=== PATIENT | female | born 1985 | race Caucasian/White ===

== ENCOUNTER → 2021-03-29 | Outpatient (CLI) | payer OTHER ==
[~2021-03-29] MED LIST: ESOM40CA PO; MULT-445 PO; [UNRECOGNIZED DRUG - CODE] PO
== END ==
LOC: LAB 10:04
PROVIDERS: ATTEND Surgery
DX: Z01.812 Encounter for preprocedural laboratory examination (principal); Z20.822 Contact with and (suspected) exposure to COVID-19
CPT/HCPCS: U0003; U0005

== ENCOUNTER 2021-03-30 08:08 | Inpatient (IN) | payer OTHER ==
[2021-03-30] VITALS (11 sets, daily range): BP systolic 113–141; BP diastolic 53–89
[~2021-03-30] VITALS: Ht 180.3 cm; Wt 114.8 kg
[~2021-03-30 08:08] MED LIST changes: -ESOM40CA PO; +IV RINGERS,LACTATED 1000ML 1,000 ML IV SCH; +MORPHINE SULFATE 2 MG/ML VIAL. IVP PRN; -MULT-445 PO; +PROCHLORPERAZINE 10 MG/2 ML VIAL. IVP PRN; -[UNRECOGNIZED DRUG - CODE] PO; +fentaNYL PF VIAL 100 MCG/2 ML VIAL IVP PRN
[2021-03-30] MEDS ORDERED: ESOM40CA PO (09:10)
[2021-03-30] MEDS ORDERED: [UNRECOGNIZED DRUG - CODE] PO (09:10)
[2021-03-30] MEDS ORDERED: MULT-445 PO (09:11)
--- NOTE | 2021-03-30 09:12 | PDOC ---
SURGICAL PROGRESS NOTE DATE: 03/30/21 TIME: 09:10 Subjective Pre-Op Note 36 yo F with congenital malrotation, pancreatitis TO OR for nima's procedure and cholecystectomy with cholangiogram R/R/B/A d/w pt and pt's mother. Risks, including, but not limited to: bleeding, infection, damage to surrounding structures, risk of anesthesia. They appear to understand, their questions are answered and they elect to proceed Office note H&P reviewed and negative except for HPI. Vital Signs Vital Signs Date Time Temp Pulse Resp B/P (MAP) Pulse Ox O2 Delivery O2 Flow Rate FiO2 03/30/21 08:41 98.7 80 18 97 98.7 Labs Laboratory Tests Test 03/30/21 07:41 Bedside Urine HCG, Qualitative Hcg negative (Negative) Laboratory Tests Test 03/30/21 07:41 Bedside Urine HCG, Qualitative Hcg negative (Negative) Justicifation of Admission Dx: Justifications for Admission: Justification of Admission Dx: Yes Comments: need for bowel rest and IVF WILNER HERNANDEZ MD Mar 30, 2021 09:12
[2021-03-30] MEDS ORDERED: LIDOCAINE 2% PF 5 ML VIAL. ONE (09:51)
[2021-03-30] MEDS ORDERED: PROPOFOL 10 MG/ML (20ML) VIAL. IV ONE ×2 (09:51→13:34)
[2021-03-30] MEDS ORDERED: SUCCINYLCHOLINE 200 MG/10 ML VIAL. ONE (09:51)
[2021-03-30] MEDS ORDERED: ROCURONIUM 50 MG/5 ML VIAL. ONE ×2 (09:52→11:13)
[2021-03-30] MEDS ORDERED: IOHEXOL 300 MG/ML 50 ML VIAL. ONE (10:05)
[2021-03-30] MEDS ORDERED: BUPIVACAINE-EPI 0.5%-1:200000 MPF 30 ML VIAL. ONE (10:05)
[2021-03-30] MEDS ORDERED: fentaNYL PF VIAL 100 MCG/2 ML VIAL ONE ×2 (10:30→13:40)
[2021-03-30] MEDS ORDERED: DEXAMETHASONE SOD PHOS 4 MG/ML VIAL ONE ×2 (10:34)
[2021-03-30] MEDS ORDERED: ONDANSETRON PF 4 MG/2 ML VIAL. ONE (10:34)
[2021-03-30] MEDS ORDERED: KETOROLAC 30 MG/ML VIAL. ONE (10:34)
[2021-03-30] MEDS ORDERED: HYDROmorphone 2 MG/ML VIAL ONE (10:43)
[2021-03-30] MEDS ORDERED: ePHEDrine PF IN SALINE 50 MG/10 ML SYRINGE. IV ONE (10:52)
[2021-03-30] MEDS ORDERED: NEOSTIGMINE METHYLSULFATE 5 MG/5 ML SYRINGE. ONE (12:09)
[2021-03-30] MEDS ORDERED: GLYCOPYRROLATE 1 MG/5 ML VIAL. ONE (12:09)
--- NOTE | 2021-03-30 12:46 | RAD ---
EXAM: Intraoperative cholangiogram. HISTORY: Cholecystomy. Pain. COMPARISON: None. FINDINGS: 2 fluoroscopic images were obtained during an intraoperative cholangiogram. The total fluor oscopy time is noncemented. There is contrast opacification of the downstream biliary tree and proxim al duodenum. No retained stone is seen. IMPRESSION: Intraoperative cholangiogram without evidence of a retained stone. Electronically signed by: Esperanza Pierre MD (03/30/2021 12:44 PM) [id number]
[2021-03-30] MEDS ORDERED: IV NORMAL SALINE 1000ML BAG 1,000 ML IV SCH (13:30)
[2021-03-30] MEDS ORDERED: NALOXONE 0.4 MG/ML VIAL. IV PRN (13:30)
[2021-03-30] MEDS ORDERED: 0.9 % SODIUM CHLORIDE 10 ML DISP.SYRIN. IV PRN (13:30)
--- NOTE | 2021-03-30 13:46 | PDOC4 ---
OPERATIVE NOTE Date: Date: Mar 30, 2021 Pre-Op Diagnosis: Congenital malrotation, pancreatitis Post-Op Diagnosis: same Procedure Performed: Springville's procedure (specifically: division of Spring[place]'s bands, division of fibrous bands, specifically to sigmoid colon, appendectomy, placement of small bowel in right abdomen with colon on left with cecum in LUQ), cholecystectomy with cholangiogram Surgeon: Zak Hernandez Anesthesia Type: GETA Blood Loss: 50 Specimans Obtained: appendix, gallbladder Findings: congenital malrotation (specifically: Spring[place]'s bands in RUQ, partially obstructing duodenum, no retroperitoneal attachments of bowel, fibrous bands throughout (especially to sigmoid and left colon)), somewhat redundant colon (favor secondary to chronic partial obstruction of left colon secondary to fibrous bands), viable viscera throughout, grossly normal appendix, normal stomach, no hernia or other masses, distended gallbladder, normal cholangiogram Complications: none Operative Note: After obtaining informed consent, patient was taken to OR, induced under GETA and prepped in the usual fashion. Midline incision made with cautery. Fascia divided in midline. Abdominal cavity was explored and noted as above. Omar's bands were divided sharply using cautery and duodenum was kocherized. Duodenum went right and inferiorly and did not cross midline or go retroperitoneally. Small bowel was followed and normal and uninjured. Appendix was identified off freely mobile cecum. Mesoappendix taken with ligasure. Base of appendix divided with UGO 75. Staple line oversewn with 3 0 vicryl. Appendix was sent to pathology. Extensive fibrous adhesions were noted in LLQ, appearing to partially obstructed the left colon and sigmoid. These were sharply divided using cautery, fully mobilizing colon throughout. Ultimately, small bowel and colon fully mobilized and no areas of obstruction noted. Bowel returned to abdominal cavity without obvious volvulus and with small bowel to right and colon to left with cecum in LUQ. Gallbladder was noted to be distended. Given this and history of pancreatitis (elevation of pancreatic enzymes and pancreatic lymph nodes enlargement) cholecystectomy indicated. Gallbladder taken off fossa using cautery. Cystic artery ligated with ligasure. Cystic duct only remaining structure. Cholangiogram obtained which was normal. Cystic duct controlled with 0 vicryl and clip. Gallbladder sent to pathology. Liver normal in appearance. Copious irrigation. No evidence of bleeding or other pathology noted. Peritoneum repaired with 0 vicryl. Anterior fascia repaired with 0 looped PDS. Skin repaired with 3 0 vicryl and 4 0 monocryl. Dressing placed. Patient tolerated procedure well and sent to PACU in stable condition. All counts correct. Wound class is 2. WILNER HERNANDEZ MD Mar 30, 2021 13:46
[2021-03-30] MEDS: fentaNYL PF VIAL 100 MCG/2 ML VIAL IVP PRN ×2 (14:01→14:08)
[2021-03-30] MEDS: HYDROmorphone 2 MG/ML VIAL IVP PRN ×2 (14:24→14:42)
--- NOTE | 2021-03-30 16:25 | RAD ---
EXAM: Abdomen, single view. HISTORY: Postoperative foreign body assessment. COMPARISON: None. FINDINGS: A frontal view of the abdomen is obtained. The upper abdomen and right abdomen or partially excluded from the [id number]. There are distended air-filled loops of bowel throughout the abdome n. There is no evidence of bowel obstruction. No radiodense foreign body is seen. IMPRESSION: Distended air-filled bowel. No evidence of a foreign body. Electronically signed by: Esperanza Pierre MD (03/30/2021 4:23 PM) [id number]
[2021-03-30] MEDS: IV RINGERS,LACTATED 1000ML 1,000 ML IV SCH ×2 (17:10→23:30)
[2021-03-30] MEDS: MORPHINE SULFATE 2 MG/ML VIAL. IV PRN ×2 (18:07→22:10)
[2021-03-30] MEDS: SENNOSIDES/DOCUSATE 8.6/50MG TABLET. PO SCH (22:06)
[2021-03-30] MEDS: HYDROcodone/APAP 5/325MG 1 TAB TABLET PO PRN (23:14)
[2021-03-31] MEDS: IV NORMAL SALINE 1000ML BAG 1,000 ML IV SCH (00:45)
[2021-03-31] MEDS ORDERED: NALOXONE 0.4 MG/ML VIAL. IV PRN (00:45)
[2021-03-31 07:00] VITALS: BP 109/58
[2021-03-31 07:41] LABS: BASO % 0 % (0-3); EOS % 0 % (0-3); HEMATOCRIT 36.1 % (36.0-47.0); LYMPH # 1.7 x10^3/uL (1.0-4.8); LYMPH % 12 % (24-48); MEAN CORPUSCULAR HEMOGLOBIN 30 pg (25-35); MEAN CORPUSCULAR HGB CONC 33 g/dL (31-37); MEAN CORPUSCULAR VOLUME 90 fL (79-100); MONO # 1.3 x10^3/uL (0.0-1.1); MONO % 9 % (0-9); NEUT # 10.9 x10^3/uL (1.8-7.7); NEUT % 78 % (31-73); PLATELET COUNT 181 x10^3/uL (140-400); RED BLOOD COUNT 4.01 x10^6/uL (3.50-5.40); RED CELL DISTRIBUTION WIDTH 11.9 % (11.5-14.5); WHITE BLOOD COUNT 13.9 x10^3/uL (4.0-11.0)
[2021-03-31 08:06] LABS: CALCIUM 8.5 mg/dL (8.5-10.1); CREATININE 0.9 mg/dL (0.6-1.0); GFR 71.7
[2021-03-31] MEDS: ENOXAPARIN 40 MG/0.4 ML SYRINGE. SQ SCH (08:27)
[2021-03-31] MEDS: SENNOSIDES/DOCUSATE 8.6/50MG TABLET. PO SCH ×2 (08:27→21:09)
--- NOTE | 2021-03-31 09:12 | PDOC ---
SURGICAL PROGRESS NOTE DATE: 03/31/21 TIME: 09:11 Subjective pain issues overnight, now improved with LEGAL TRANSCRIPTIONIST mild nausea, some hiccups Vital Signs Vital Signs Date Time Temp Pulse Resp B/P (MAP) Pulse Ox O2 Delivery O2 Flow Rate FiO2 03/31/21 07:00 98.6 94 17 109/58 (75) 96 Room Air 98.6 03/30/21 14:24 8.0 I&O Intake and Output 03/31/21 07:00 Intake Total 2640 ml Output Total 1800 ml Balance 840 ml Intake Oral 640 ml IV Total 2000 ml Output Urine Total 1750 ml Estimated Blood Loss 50 ml General: Alert, Oriented X3, Cooperative Abdomen: Soft, Other (dressing in place with some shadowing ) Labs Laboratory Tests Test 03/30/21 07:41 03/31/21 05:45 Bedside Urine HCG, Qualitative Hcg negative (Negative) White Blood Count 13.9 x10^3/uL (4.0-11.0) Red Blood Count 4.01 x10^6/uL (3.50-5.40) Hemoglobin 12.0 g/dL (12.0-15.5) Hematocrit 36.1 % (36.0-47.0) Mean Corpuscular Volume 90 fL (79-100) Mean Corpuscular Hemoglobin 30 pg (25-35) Mean Corpuscular Hemoglobin Concent 33 g/dL (31-37) Red Cell Distribution Width 11.9 % (11.5-14.5) Platelet Count 181 x10^3/uL (140-400) Neutrophils (%) (Auto) 78 % (31-73) Lymphocytes (%) (Auto) 12 % (24-48) Monocytes (%) (Auto) 9 % (0-9) Eosinophils (%) (Auto) 0 % (0-3) Basophils (%) (Auto) 0 % (0-3) Neutrophils # (Auto) 10.9 x10^3/uL (1.8-7.7) Lymphocytes # (Auto) 1.7 x10^3/uL (1.0-4.8) Monocytes # (Auto) 1.3 x10^3/uL (0.0-1.1) Eosinophils # (Auto) 0.0 x10^3/uL (0.0-0.7) Basophils # (Auto) 0.0 x10^3/uL (0.0-0.2) Sodium Level 141 mmol/L (136-145) Potassium Level 4.0 mmol/L (3.5-5.1) Chloride Level 107 mmol/L (98-107) Carbon Dioxide Level 25 mmol/L (21-32) Anion Gap 9 (6-14) Blood Urea Nitrogen 9 mg/dL (7-20) Creatinine 0.9 mg/dL (0.6-1.0) Estimated GFR (Cockcroft-Gault) 71.7 Glucose Level 113 mg/dL (70-99) Calcium Level 8.5 mg/dL (8.5-10.1) Laboratory Tests Test 03/31/21 05:45 White Blood Count 13.9 x10^3/uL (4.0-11.0) Red Blood Count 4.01 x10^6/uL (3.50-5.40) Hemoglobin 12.0 g/dL (12.0-15.5) Hematocrit 36.1 % (36.0-47.0) Mean Corpuscular Volume 90 fL (79-100) Mean Corpuscular Hemoglobin 30 pg (25-35) Mean Corpuscular Hemoglobin Concent 33 g/dL (31-37) Red Cell Distribution Width 11.9 % (11.5-14.5) Platelet Count 181 x10^3/uL (140-400) Neutrophils (%) (Auto) 78 % (31-73) Lymphocytes (%) (Auto) 12 % (24-48) Monocytes (%) (Auto) 9 % (0-9) Eosinophils (%) (Auto) 0 % (0-3) Basophils (%) (Auto) 0 % (0-3) Neutrophils # (Auto) 10.9 x10^3/uL (1.8-7.7) Lymphocytes # (Auto) 1.7 x10^3/uL (1.0-4.8) Monocytes # (Auto) 1.3 x10^3/uL (0.0-1.1) Eosinophils # (Auto) 0.0 x10^3/uL (0.0-0.7) Basophils # (Auto) 0.0 x10^3/uL (0.0-0.2) Sodium Level 141 mmol/L (136-145) Potassium Level 4.0 mmol/L (3.5-5.1) Chloride Level 107 mmol/L (98-107) Carbon Dioxide Level 25 mmol/L (21-32) Anion Gap 9 (6-14) Blood Urea Nitrogen 9 mg/dL (7-20) Creatinine 0.9 mg/dL (0.6-1.0) Estimated GFR (Cockcroft-Gault) 71.7 Glucose Level 113 mg/dL (70-99) Calcium Level 8.5 mg/dL (8.5-10.1) Assessment/Plan supportive care await bowel function insurance sales professional today dc blanco today increase activity Justicifation of Admission Dx: Justifications for Admission: Justification of Admission Dx: Yes SISI MAYER BUSINESS DATABASE ANALYST Mar 31, 2021 09:12
[2021-03-31] MEDS: IV RINGERS,LACTATED 1000ML 1,000 ML IV SCH ×2 (09:30→19:30)
--- NOTE | 2021-03-31 09:44 | NUR ---
SW following. Discussed with RN, pt from home, room air, clear liquid diet, DIVISION CHAIR, Palm. Pt had surgery 03/30/21. RN advised no SW needs at this time. SW will continue to follow.
[2021-03-31 11:00] VITALS: BP 102/60
[2021-03-31 15:00] VITALS: BP 120/68
[2021-03-31] MEDS: ONDANSETRON PF 4 MG/2 ML VIAL. IVP PRN (16:18)
[2021-03-31 19:00] VITALS: BP 118/81
[2021-03-31] MEDS: PROCHLORPERAZINE 10 MG/2 ML VIAL. IV PRN (21:26)
[2021-03-31 23:00] VITALS: BP 128/72
[2021-03-31] MEDS: HYDROmorphone 12mg/30ml PCA 30 ML IV PRN (23:36)
[2021-04-01] MEDS: ONDANSETRON PF 4 MG/2 ML VIAL. IVP PRN ×3 (00:25→19:17)
[2021-04-01] MEDS: IV NORMAL SALINE 1000ML BAG 1,000 ML IV SCH ×2 (00:45→19:18)
[2021-04-01 03:00] VITALS: BP 131/91
[2021-04-01] MEDS: PROCHLORPERAZINE 10 MG/2 ML VIAL. IV PRN ×2 (03:30→14:58)
[2021-04-01] MEDS: IV RINGERS,LACTATED 1000ML 1,000 ML IV SCH (05:30)
[2021-04-01] MEDS: PANTOPRAZOLE 40 MG TABLET.DR. PO SCH (05:49)
[2021-04-01 07:00] VITALS: BP 148/92
--- NOTE | 2021-04-01 08:57 | PDOC ---
SURGICAL PROGRESS NOTE DATE: 04/01/21 TIME: 08:56 Subjective vomiting, distention feels unwell no flatus Vital Signs Vital Signs Date Time Temp Pulse Resp B/P (MAP) Pulse Ox O2 Delivery O2 Flow Rate FiO2 04/01/21 08:00 Room Air 04/01/21 07:00 98.6 110 16 148/92 (110) 94 98.6 I&O Intake and Output 04/01/21 07:00 Intake Total 940 ml Output Total 2527 ml Balance -1587 ml Intake Oral 940 ml Output Urine Total 2525 ml Stool Total 0 ml Emesis 2 ml # Voids 3 General: Alert, Cooperative Abdomen: Soft, Other (distended) Labs Laboratory Tests Test 03/31/21 05:45 04/01/21 00:20 White Blood Count 13.9 x10^3/uL (4.0-11.0) Red Blood Count 4.01 x10^6/uL (3.50-5.40) Hemoglobin 12.0 g/dL (12.0-15.5) Hematocrit 36.1 % (36.0-47.0) Mean Corpuscular Volume 90 fL (79-100) Mean Corpuscular Hemoglobin 30 pg (25-35) Mean Corpuscular Hemoglobin Concent 33 g/dL (31-37) Red Cell Distribution Width 11.9 % (11.5-14.5) Platelet Count 181 x10^3/uL (140-400) Neutrophils (%) (Auto) 78 % (31-73) Lymphocytes (%) (Auto) 12 % (24-48) Monocytes (%) (Auto) 9 % (0-9) Eosinophils (%) (Auto) 0 % (0-3) Basophils (%) (Auto) 0 % (0-3) Neutrophils # (Auto) 10.9 x10^3/uL (1.8-7.7) Lymphocytes # (Auto) 1.7 x10^3/uL (1.0-4.8) Monocytes # (Auto) 1.3 x10^3/uL (0.0-1.1) Eosinophils # (Auto) 0.0 x10^3/uL (0.0-0.7) Basophils # (Auto) 0.0 x10^3/uL (0.0-0.2) Sodium Level 141 mmol/L (136-145) Potassium Level 4.0 mmol/L (3.5-5.1) Chloride Level 107 mmol/L (98-107) Carbon Dioxide Level 25 mmol/L (21-32) Anion Gap 9 (6-14) Blood Urea Nitrogen 9 mg/dL (7-20) Creatinine 0.9 mg/dL (0.6-1.0) Estimated GFR (Cockcroft-Gault) 71.7 Glucose Level 113 mg/dL (70-99) Calcium Level 8.5 mg/dL (8.5-10.1) Lactic Acid Level 0.7 mmol/L (0.4-2.0) Laboratory Tests Test 04/01/21 00:20 Lactic Acid Level 0.7 mmol/L (0.4-2.0) Problem List place NG, xr, lab Justicifation of Admission Dx: Justifications for Admission: Justification of Admission Dx: Yes SISI MAYER APRN Apr 01, 2021 08:57
[2021-04-01] MEDS: SENNOSIDES/DOCUSATE 8.6/50MG TABLET. PO SCH ×2 (09:00→21:00)
--- NOTE | 2021-04-01 10:57 | RAD ---
Study: XR ABDOMEN COMP ACUTE Indication: Nasogastric tube placement. Postoperative vomiting. Comparison: 03/30/2021 Findings: Enteric tube tip and sidehole are within the stomach. Bibasilar atelectasis. Gaseous distention of bowel. Distended gastric bubble with gas and fluid. Impression: Enteric tube tip and sidehole are within the stomach. Gaseous distention of bowel and gas/fluid diste ntion of the gastric bubble which could represent a postoperative ileus. Electronically signed by: TAIWO KOO MD (04/01/2021 10:55 AM) QUENTIN
[2021-04-01 11:00] VITALS: BP 137/84
[2021-04-01] MEDS: ENOXAPARIN 40 MG/0.4 ML SYRINGE. SQ SCH (11:02)
[2021-04-01 12:45] LABS: BASO % 0 % (0-3); EOS % 0 % (0-3); HEMATOCRIT 41.9 % (36.0-47.0); HEMOGLOBIN 14.2 g/dL (12.0-15.5); LYMPH # 0.9 x10^3/uL (1.0-4.8); LYMPH % 6 % (24-48); MEAN CORPUSCULAR HEMOGLOBIN 30 pg (25-35); MEAN CORPUSCULAR HGB CONC 34 g/dL (31-37); MEAN CORPUSCULAR VOLUME 89 fL (79-100); MONO # 0.9 x10^3/uL (0.0-1.1); MONO % 6 % (0-9); NEUT % 88 % (31-73); PLATELET COUNT 232 x10^3/uL (140-400); RED BLOOD COUNT 4.71 x10^6/uL (3.50-5.40); RED CELL DISTRIBUTION WIDTH 11.9 % (11.5-14.5); WHITE BLOOD COUNT 15.9 x10^3/uL (4.0-11.0)
[2021-04-01 12:59] LABS: ALBUMIN/GLOBULIN RATIO 0.7 (1.0-1.7); CREATININE 0.9 mg/dL (0.6-1.0); GFR 71.7; POTASSIUM 4.1 mmol/L (3.5-5.1); TOTAL BILIRUBIN 1.2 mg/dL (0.2-1.0); TOTAL PROTEIN 7.1 g/dL (6.4-8.2)
--- NOTE | 2021-04-01 13:19 | NUR ---
SPECIALTY THERAPIST increased to 0.2mg every 10min.
[2021-04-01] MEDS ORDERED: IV RINGERS,LACTATED 500ML 500 ML IV ONE (13:45)
[2021-04-01 14:09] LABS: % BANDS 1 % (0-9); % BASOS 1 % (0-3); % SEGS 87 % (35-66)
[2021-04-01 14:10] LABS: % LYMPHS 8 % (24-48); % MONOS 3 % (0-10)
[2021-04-01 14:18] LABS: PLT ESTIMATE ADEQUATE (ADEQUATE)
[2021-04-01 15:00] VITALS: BP 133/80
[2021-04-01] MEDS: HYDROmorphone 12mg/30ml PCA 30 ML IV PRN (15:01)
[2021-04-01 19:47] VITALS: BP 153/80
[2021-04-01 23:05] VITALS: BP 139/91
[2021-04-02 03:13] VITALS: BP 138/89
[2021-04-02] MEDS: IV NORMAL SALINE 1000ML BAG 1,000 ML IV SCH ×3 (06:08→20:14)
[2021-04-02 07:00] VITALS: BP 138/86
[2021-04-02] MEDS: PANTOPRAZOLE 40 MG TABLET.DR. PO SCH (07:30)
[2021-04-02 07:49] LABS: BASO % 0 % (0-3); EOS % 0 % (0-3); HEMATOCRIT 37.6 % (36.0-47.0); HEMOGLOBIN 12.7 g/dL (12.0-15.5); LYMPH # 1.4 x10^3/uL (1.0-4.8); LYMPH % 12 % (24-48); MEAN CORPUSCULAR HEMOGLOBIN 30 pg (25-35); MEAN CORPUSCULAR HGB CONC 34 g/dL (31-37); MEAN CORPUSCULAR VOLUME 90 fL (79-100); MONO # 1.3 x10^3/uL (0.0-1.1); MONO % 12 % (0-9); NEUT # 8.3 x10^3/uL (1.8-7.7); NEUT % 76 % (31-73); PLATELET COUNT 204 x10^3/uL (140-400); RED CELL DISTRIBUTION WIDTH 11.7 % (11.5-14.5)
[2021-04-02] MEDS ORDERED: IV RINGERS,LACTATED 500ML 500 ML IV ONE (08:00)
[2021-04-02] MEDS: SENNOSIDES/DOCUSATE 8.6/50MG TABLET. PO SCH ×3 (08:10→20:17)
[2021-04-02 08:16] LABS: ALBUMIN 2.6 g/dL (3.4-5.0); ALBUMIN/GLOBULIN RATIO 0.7 (1.0-1.7); CALCIUM 8.3 mg/dL (8.5-10.1); GFR 63.5; POTASSIUM 4.3 mmol/L (3.5-5.1); TOTAL BILIRUBIN 1.2 mg/dL (0.2-1.0); TOTAL PROTEIN 6.3 g/dL (6.4-8.2)
--- NOTE | 2021-04-02 08:26 | PATHOLOGY ---
[facility] Accession Number: [id number] . 01 Material submitted: . PART A: appendix - APPENDIX PART B: gallbladder - GALLBLADDER . 01 Clinical history: . MALFORMATION OF INTESTINAL FORMATIONS PAIGE'S PROCEDURE . 02 Diagnosis: A. Appendix, appendectomy: - Fibrous obliteration of appendiceal lumen. . B. Gallbladder, cholecystectomy: - Cholesterolosis. - Congestion and focal slight chronic inflammation. - Focal lipogranulomata of gallbladder neck lymph node. . (JAYMIEM:nicanor; 04/01/2021) [facility] 04/01/2021 1739 Local . 02 Comment: There are no calculi identified within the gallbladder lumen or specimen container. (JPM:nicanor; 04/01/2021) . 02 Electronically signed: . Samm Crain MD, Pathologist NPI- [id number] . 01 Gross description: . A. Fixative: Formalin Labeled: Appendix Appendix length: 5.7 cm Appendix diameter: 0.7 cm Mesoappendix: 3.5 cm Proximal margin: Inked Luminal diameter: 0.1 cm Serosa: Arkoma-dobbs without gross evidence of exudate Cut surface: Unremarkable Perforation: None Fecaliths none Lesions/abnormalities: None A1 Proximal margin (inked black), and the entire tip A2 cross sections . B. Fixative: formalin Labeled: gallbladder Specimen received: partially collapsed Dimensions: 8 x 3.5 x 2 cm Serosa: smooth jonas green Lymph node: 0.6 cm entirely submitted A1 Mucosa: velvety-with a yellow reticular pattern Average wall thickness: 0.2 cm Calculi: None Abnormalities: None . Delivery Helper body, fundus, and the cystic duct margin in cassette B1. ([facility]; 03/31/2021) [facility] 04/01/2021 1736 Local . 02 Pathologist provided ICD-10: K38.8, K82.4 . 02 CPT . 687264, 617363 Specimen Comment: A courtesy copy of this report has been sent to [phone] Specimen Comment: Report sent to Specimen Comment: A duplicate report has been generated due to demographic updates. Performed at: 01 [facility] [address], [place] [id number] MD Trace Metz MD Phone: [phone] Performed at: 02 [facility] [address] [place], [place] [id number] MD Samm Crain MD Phone: [phone]
[2021-04-02] MEDS: ENOXAPARIN 40 MG/0.4 ML SYRINGE. SQ SCH (08:49)
--- NOTE | 2021-04-02 09:55 | NUR ---
SW following. Discussed with RN, pt from home, room air, NPO, MUTUAL FUND ACCOUNTANT, NG. Surgery on 03/30/21. RN advised no SW needs. Pt will likely be here through the weekend. SW will continue to follow.
[2021-04-02 10:48] VITALS: BP 133/83
--- NOTE | 2021-04-02 11:04 | PDOC ---
SURGICAL PROGRESS NOTE DATE: 04/02/21 TIME: 11:02 Subjective Pt feels better, no flatus or stools, but feels rumblings Vital Signs Vital Signs Date Time Temp Pulse Resp B/P (MAP) Pulse Ox O2 Delivery O2 Flow Rate FiO2 04/02/21 10:48 97.6 102 17 133/83 (100) 93 Room Air 97.6 I&O Intake and Output 04/02/21 07:00 Intake Total 1000 ml Output Total 3100 ml Balance -2100 ml IV Total 1000 ml Gastric Drainage Total 3100 ml # Voids 2 General: Alert, Oriented X3, Cooperative, No acute distress Abdomen: Soft, Other (mild TTP) Labs Laboratory Tests Test 04/01/21 00:20 04/01/21 11:55 04/02/21 07:25 Lactic Acid Level 0.7 mmol/L (0.4-2.0) White Blood Count 15.9 x10^3/uL (4.0-11.0) 11.0 x10^3/uL (4.0-11.0) Red Blood Count 4.71 x10^6/uL (3.50-5.40) 4.20 x10^6/uL (3.50-5.40) Hemoglobin 14.2 g/dL (12.0-15.5) 12.7 g/dL (12.0-15.5) Hematocrit 41.9 % (36.0-47.0) 37.6 % (36.0-47.0) Mean Corpuscular Volume 89 fL (79-100) 90 fL (79-100) Mean Corpuscular Hemoglobin 30 pg (25-35) 30 pg (25-35) Mean Corpuscular Hemoglobin Concent 34 g/dL (31-37) 34 g/dL (31-37) Red Cell Distribution Width 11.9 % (11.5-14.5) 11.7 % (11.5-14.5) Platelet Count 232 x10^3/uL (140-400) 204 x10^3/uL (140-400) Neutrophils (%) (Auto) 88 % (31-73) 76 % (31-73) Lymphocytes (%) (Auto) 6 % (24-48) 12 % (24-48) Monocytes (%) (Auto) 6 % (0-9) 12 % (0-9) Eosinophils (%) (Auto) 0 % (0-3) 0 % (0-3) Basophils (%) (Auto) 0 % (0-3) 0 % (0-3) Neutrophils # (Auto) 14.0 x10^3/uL (1.8-7.7) 8.3 x10^3/uL (1.8-7.7) Lymphocytes # (Auto) 0.9 x10^3/uL (1.0-4.8) 1.4 x10^3/uL (1.0-4.8) Monocytes # (Auto) 0.9 x10^3/uL (0.0-1.1) 1.3 x10^3/uL (0.0-1.1) Eosinophils # (Auto) 0.0 x10^3/uL (0.0-0.7) 0.0 x10^3/uL (0.0-0.7) Basophils # (Auto) 0.0 x10^3/uL (0.0-0.2) 0.0 x10^3/uL (0.0-0.2) Segmented Neutrophils % 87 % (35-66) Band Neutrophils % 1 % (0-9) Lymphocytes % 8 % (24-48) Monocytes % 3 % (0-10) Basophils % 1 % (0-3) Platelet Estimate Adequate (ADEQUATE) Sodium Level 137 mmol/L (136-145) 140 mmol/L (136-145) Potassium Level 4.1 mmol/L (3.5-5.1) 4.3 mmol/L (3.5-5.1) Chloride Level 101 mmol/L (98-107) 105 mmol/L (98-107) Carbon Dioxide Level 23 mmol/L (21-32) 27 mmol/L (21-32) Anion Gap 13 (6-14) 8 (6-14) Blood Urea Nitrogen 10 mg/dL (7-20) 11 mg/dL (7-20) Creatinine 0.9 mg/dL (0.6-1.0) 1.0 mg/dL (0.6-1.0) Estimated GFR (Cockcroft-Gault) 71.7 63.5 BUN/Creatinine Ratio 11 (6-20) 11 (6-20) Glucose Level 137 mg/dL (70-99) 125 mg/dL (70-99) Calcium Level 9.0 mg/dL (8.5-10.1) 8.3 mg/dL (8.5-10.1) Total Bilirubin 1.2 mg/dL (0.2-1.0) 1.2 mg/dL (0.2-1.0) Aspartate Amino Transf (AST/SGOT) 26 U/L (15-37) 24 U/L (15-37) Alanine Aminotransferase (ALT/SGPT) 19 U/L (14-59) 15 U/L (14-59) Alkaline Phosphatase 61 U/L (46-116) 47 U/L (46-116) Total Protein 7.1 g/dL (6.4-8.2) 6.3 g/dL (6.4-8.2) Albumin 3.0 g/dL (3.4-5.0) 2.6 g/dL (3.4-5.0) Albumin/Globulin Ratio 0.7 (1.0-1.7) 0.7 (1.0-1.7) Laboratory Tests Test 04/01/21 11:55 04/02/21 07:25 White Blood Count 15.9 x10^3/uL (4.0-11.0) 11.0 x10^3/uL (4.0-11.0) Red Blood Count 4.71 x10^6/uL (3.50-5.40) 4.20 x10^6/uL (3.50-5.40) Hemoglobin 14.2 g/dL (12.0-15.5) 12.7 g/dL (12.0-15.5) Hematocrit 41.9 % (36.0-47.0) 37.6 % (36.0-47.0) Mean Corpuscular Volume 89 fL (79-100) 90 fL (79-100) Mean Corpuscular Hemoglobin 30 pg (25-35) 30 pg (25-35) Mean Corpuscular Hemoglobin Concent 34 g/dL (31-37) 34 g/dL (31-37) Red Cell Distribution Width 11.9 % (11.5-14.5) 11.7 % (11.5-14.5) Platelet Count 232 x10^3/uL (140-400) 204 x10^3/uL (140-400) Neutrophils (%) (Auto) 88 % (31-73) 76 % (31-73) Lymphocytes (%) (Auto) 6 % (24-48) 12 % (24-48) Monocytes (%) (Auto) 6 % (0-9) 12 % (0-9) Eosinophils (%) (Auto) 0 % (0-3) 0 % (0-3) Basophils (%) (Auto) 0 % (0-3) 0 % (0-3) Neutrophils # (Auto) 14.0 x10^3/uL (1.8-7.7) 8.3 x10^3/uL (1.8-7.7) Lymphocytes # (Auto) 0.9 x10^3/uL (1.0-4.8) 1.4 x10^3/uL (1.0-4.8) Monocytes # (Auto) 0.9 x10^3/uL (0.0-1.1) 1.3 x10^3/uL (0.0-1.1) Eosinophils # (Auto) 0.0 x10^3/uL (0.0-0.7) 0.0 x10^3/uL (0.0-0.7) Basophils # (Auto) 0.0 x10^3/uL (0.0-0.2) 0.0 x10^3/uL (0.0-0.2) Segmented Neutrophils % 87 % (35-66) Band Neutrophils % 1 % (0-9) Lymphocytes % 8 % (24-48) Monocytes % 3 % (0-10) Basophils % 1 % (0-3) Platelet Estimate Adequate (ADEQUATE) Sodium Level 137 mmol/L (136-145) 140 mmol/L (136-145) Potassium Level 4.1 mmol/L (3.5-5.1) 4.3 mmol/L (3.5-5.1) Chloride Level 101 mmol/L (98-107) 105 mmol/L (98-107) Carbon Dioxide Level 23 mmol/L (21-32) 27 mmol/L (21-32) Anion Gap 13 (6-14) 8 (6-14) Blood Urea Nitrogen 10 mg/dL (7-20) 11 mg/dL (7-20) Creatinine 0.9 mg/dL (0.6-1.0) 1.0 mg/dL (0.6-1.0) Estimated GFR (Cockcroft-Gault) 71.7 63.5 BUN/Creatinine Ratio 11 (6-20) 11 (6-20) Glucose Level 137 mg/dL (70-99) 125 mg/dL (70-99) Calcium Level 9.0 mg/dL (8.5-10.1) 8.3 mg/dL (8.5-10.1) Total Bilirubin 1.2 mg/dL (0.2-1.0) 1.2 mg/dL (0.2-1.0) Aspartate Amino Transf (AST/SGOT) 26 U/L (15-37) 24 U/L (15-37) Alanine Aminotransferase (ALT/SGPT) 19 U/L (14-59) 15 U/L (14-59) Alkaline Phosphatase 61 U/L (46-116) 47 U/L (46-116) Total Protein 7.1 g/dL (6.4-8.2) 6.3 g/dL (6.4-8.2) Albumin 3.0 g/dL (3.4-5.0) 2.6 g/dL (3.4-5.0) Albumin/Globulin Ratio 0.7 (1.0-1.7) 0.7 (1.0-1.7) Assessment/Plan s/p nima's procedure cont NGT and bowel rest suspect pt with long standing malnutrition and as such will start TPN Justicifation of Admission Dx: Justifications for Admission: Justification of Admission Dx: Yes WILNER HERNANDEZ MD Apr 02, 2021 11:04
[2021-04-02] MEDS: HYDROmorphone 12mg/30ml PCA 30 ML IV PRN (12:54)
[2021-04-02] MEDS ORDERED: LIDOCAINE WITH 8.4% SOD BICARB 3 ML DISP.SYRIN. ONE (14:45)
[2021-04-02 15:00] VITALS: BP 142/83
--- NOTE | 2021-04-02 15:26 | RAD ---
Date: Exam: Fluoroscopic and ultrasound guided peripheral central venous catheter placement. Indication: Consent: The procedure was explained in its entirety to the patient or the patients designated repres entative by a member of the treatment team, including a discussion of the risks, benefits and commonl y accepted alternatives to the procedure, as well as the expected consequences of no therapy whatsoev er. Discussion of the risks included, but was not limited to, those that are most frequent and thos e that are rare but possibly severe or life-threatening, as well as the possibility of unforeseen com plications. Discussion: A timeout procedure was performed. The patient was prepped and draped using maximum sterile techniq ue, including the use of: Current guideline approved cutaneous antisepsis, a large sterile sheet to e stablish a sterile field. Additionally the chemical reclamation equipment operator wore a hat, mask, sterile gloves, a sterile gown during the procedure as well as practiced acceptable hand hygiene prior to placing the line. 1% lidoc slime was administered for local anesthesia. Ultrasound evaluation demonstrates a patent basilic vein. Reference images were saved in the medical record. The selected vein was accessed using micropuncture technique. A guidewire was advanced centr ally. The PICC line was cut to length, and advanced through a peel-away sheath such that it's tip re sides at the cavoatrial junction. The peel-away sheath a sheath was removed. The catheter was secured in place. The catheter was found to flush and aspirate normally.. Sterile dressings were applied. No immediate complications were identified. Fluoroscopy time: 0.7 minutes Dose area product: 2 Gycm2 Impression: Successful placement of a right upper extremity PICC line Electronically signed by: Misha Head MD (04/02/2021 3:24 PM) [id number]
[2021-04-02 19:00] VITALS: BP 138/84
[2021-04-02 23:00] VITALS: BP 141/83
[2021-04-03 03:00] VITALS: BP 124/79
[2021-04-03] MEDS ORDERED: PHENOL ORAL SPRAY 177ML BOTTLE. PO PRN (03:15)
[2021-04-03] MEDS: IV NORMAL SALINE 1000ML BAG 1,000 ML IV SCH ×2 (05:15→15:14)
[2021-04-03 07:00] VITALS: BP 133/76
[2021-04-03] MEDS: PANTOPRAZOLE 40 MG TABLET.DR. PO SCH (07:30)
--- NOTE | 2021-04-03 08:38 | PDOC ---
SURGICAL PROGRESS NOTE DATE: 04/03/21 TIME: 08:36 Subjective Patient feeling better this morning. States that she feels crampy abdominal pain as if things are starting to move. No flatus or bowel movement Vital Signs Vital Signs Date Time Temp Pulse Resp B/P (MAP) Pulse Ox O2 Delivery O2 Flow Rate FiO2 04/03/21 07:00 98.2 95 18 133/76 (95) 96 Room Air 98.2 I&O Intake and Output 04/03/21 07:00 Intake Total 1120 ml Output Total 2401 ml Balance -1281 ml Intake Oral 120 ml IV Total 1000 ml Output Urine Total 1 ml Gastric Drainage Total 2400 ml # Voids 4 PATIENT HAS A ARNDT: No General: Alert, Oriented X3, Cooperative, mild distress Abdomen: Soft, Other (Abdomen slightly distended mild incisional tenderness wounds clean dry and intact NG tube in place with bilious output) Labs Laboratory Tests Test 04/01/21 11:55 04/02/21 07:25 White Blood Count 15.9 x10^3/uL (4.0-11.0) 11.0 x10^3/uL (4.0-11.0) Red Blood Count 4.71 x10^6/uL (3.50-5.40) 4.20 x10^6/uL (3.50-5.40) Hemoglobin 14.2 g/dL (12.0-15.5) 12.7 g/dL (12.0-15.5) Hematocrit 41.9 % (36.0-47.0) 37.6 % (36.0-47.0) Mean Corpuscular Volume 89 fL (79-100) 90 fL (79-100) Mean Corpuscular Hemoglobin 30 pg (25-35) 30 pg (25-35) Mean Corpuscular Hemoglobin Concent 34 g/dL (31-37) 34 g/dL (31-37) Red Cell Distribution Width 11.9 % (11.5-14.5) 11.7 % (11.5-14.5) Platelet Count 232 x10^3/uL (140-400) 204 x10^3/uL (140-400) Neutrophils (%) (Auto) 88 % (31-73) 76 % (31-73) Lymphocytes (%) (Auto) 6 % (24-48) 12 % (24-48) Monocytes (%) (Auto) 6 % (0-9) 12 % (0-9) Eosinophils (%) (Auto) 0 % (0-3) 0 % (0-3) Basophils (%) (Auto) 0 % (0-3) 0 % (0-3) Neutrophils # (Auto) 14.0 x10^3/uL (1.8-7.7) 8.3 x10^3/uL (1.8-7.7) Lymphocytes # (Auto) 0.9 x10^3/uL (1.0-4.8) 1.4 x10^3/uL (1.0-4.8) Monocytes # (Auto) 0.9 x10^3/uL (0.0-1.1) 1.3 x10^3/uL (0.0-1.1) Eosinophils # (Auto) 0.0 x10^3/uL (0.0-0.7) 0.0 x10^3/uL (0.0-0.7) Basophils # (Auto) 0.0 x10^3/uL (0.0-0.2) 0.0 x10^3/uL (0.0-0.2) Segmented Neutrophils % 87 % (35-66) Band Neutrophils % 1 % (0-9) Lymphocytes % 8 % (24-48) Monocytes % 3 % (0-10) Basophils % 1 % (0-3) Platelet Estimate Adequate (ADEQUATE) Sodium Level 137 mmol/L (136-145) 140 mmol/L (136-145) Potassium Level 4.1 mmol/L (3.5-5.1) 4.3 mmol/L (3.5-5.1) Chloride Level 101 mmol/L (98-107) 105 mmol/L (98-107) Carbon Dioxide Level 23 mmol/L (21-32) 27 mmol/L (21-32) Anion Gap 13 (6-14) 8 (6-14) Blood Urea Nitrogen 10 mg/dL (7-20) 11 mg/dL (7-20) Creatinine 0.9 mg/dL (0.6-1.0) 1.0 mg/dL (0.6-1.0) Estimated GFR (Cockcroft-Gault) 71.7 63.5 BUN/Creatinine Ratio 11 (6-20) 11 (6-20) Glucose Level 137 mg/dL (70-99) 125 mg/dL (70-99) Calcium Level 9.0 mg/dL (8.5-10.1) 8.3 mg/dL (8.5-10.1) Total Bilirubin 1.2 mg/dL (0.2-1.0) 1.2 mg/dL (0.2-1.0) Aspartate Amino Transf (AST/SGOT) 26 U/L (15-37) 24 U/L (15-37) Alanine Aminotransferase (ALT/SGPT) 19 U/L (14-59) 15 U/L (14-59) Alkaline Phosphatase 61 U/L (46-116) 47 U/L (46-116) Total Protein 7.1 g/dL (6.4-8.2) 6.3 g/dL (6.4-8.2) Albumin 3.0 g/dL (3.4-5.0) 2.6 g/dL (3.4-5.0) Albumin/Globulin Ratio 0.7 (1.0-1.7) 0.7 (1.0-1.7) Assessment/Plan Status post exploratory laparotomy for Omar's procedure awaiting return of bowel function We will start TPN Justicifation of Admission Dx: Justifications for Admission: Justification of Admission Dx: Yes BOB GRAHAM MD Apr 03, 2021 08:38
[2021-04-03] MEDS: SENNOSIDES/DOCUSATE 8.6/50MG TABLET. PO SCH ×2 (09:00→21:00)
[2021-04-03 09:58] LABS: BASO % 0 % (0-3); EOS # 0.1 x10^3/uL (0.0-0.7); EOS % 1 % (0-3); HEMATOCRIT 32.9 % (36.0-47.0); HEMOGLOBIN 11.1 g/dL (12.0-15.5); LYMPH % 23 % (24-48); MEAN CORPUSCULAR HEMOGLOBIN 30 pg (25-35); MEAN CORPUSCULAR HGB CONC 34 g/dL (31-37); MEAN CORPUSCULAR VOLUME 90 fL (79-100); MONO % 11 % (0-9); NEUT # 5.5 x10^3/uL (1.8-7.7); NEUT % 65 % (31-73); PLATELET COUNT 170 x10^3/uL (140-400); RED BLOOD COUNT 3.66 x10^6/uL (3.50-5.40); RED CELL DISTRIBUTION WIDTH 11.8 % (11.5-14.5); WHITE BLOOD COUNT 8.5 x10^3/uL (4.0-11.0)
[2021-04-03 10:07] LABS: ALBUMIN 2.7 g/dL (3.4-5.0); ALBUMIN/GLOBULIN RATIO 0.8 (1.0-1.7); CREATININE 0.9 mg/dL (0.6-1.0); GFR 71.7; MAGNESIUM 1.8 mg/dL (1.8-2.4); PHOSPHORUS 2.3 mg/dL (2.6-4.7); POTASSIUM 3.5 mmol/L (3.5-5.1); TOTAL BILIRUBIN 1.5 mg/dL (0.2-1.0); TOTAL PROTEIN 6.2 g/dL (6.4-8.2)
[2021-04-03] MEDS: AMINO AC 3%/ELECTROLYTE/GLYCER 1,000 ML IV SCH ×2 (10:29→21:15)
[2021-04-03] MEDS: ENOXAPARIN 40 MG/0.4 ML SYRINGE. SQ SCH (10:29)
[2021-04-03 11:00] VITALS: BP 144/89
[2021-04-03] MEDS ORDERED: POTASSIUM PHOSPHATE DIBASIC 13.6 MMOL in IV NS 250 ML IV ONE (12:00)
[2021-04-03] MEDS: HYDROmorphone 12mg/30ml PCA 30 ML IV PRN (12:26)
[2021-04-03] MEDS: TPN PER PHARMACY MC PRN (12:31)
--- NOTE | 2021-04-03 12:41 | NUR ---
Pharmacy TPN Dosing Note S: EVELIA ALVAREZ is a 36 year old F Currently receiving Central Continuous TPN started B:Pertinent PMH: S/P ex lap; awaiting bowel function return Height: 5 feet, 11 inches Weight: 115.0 kg Current diet: LABS: Sodium: 141 Potassium: 3.5 Chloride: 105 Calcium: 8.0 Corrected Calcium: 9.04 Magnesium: 1.8 CO2: 26 SCr: 0.9 Glucose: 84 Albumin: 2.7 AST: 26 ALT: 17 TPN FORMULA: TPN TYPE: Central Continuous AMINO ACIDS: 60 gm DEXTROSE: 195 gm LIPIDS: 20 gm SODIUM CHLORIDE: 90 mEq POTASSIUM CHLORIDE: 50 mEq POTASSIUM PHOSPHATE: 13.6 mmol MAGNESIUM: 10 mEq CALCIUM: 10 mEq MULTIPLE VITAMIN: 5 ml TRACE ELEMENTS: 1 ml(s) TPN PLAN: Initiate house formula TPN R: Begin TPN per house formula Will monitor electrolytes, glucose, and tolerance to TPN. Rhonda Pritchard RPH, 04/03/21 [id number]
[2021-04-03 15:00] VITALS: BP 161/99
[2021-04-03 19:00] VITALS: BP 131/80
[2021-04-03] MEDS ORDERED: FAT EMULSIONS 20% 250 ML IV SCH (22:00)
[2021-04-03] MEDS ORDERED: TOTAL PARENTERAL NUTRITION 1,429.9614 ML, AMINO ACID 15% 60 GM, DEXTROSE 70 % IN WATER ... IV SCH (22:00)
[2021-04-03 23:00] VITALS: BP 126/84
[2021-04-04] MEDS: IV NORMAL SALINE 1000ML BAG 1,000 ML IV SCH ×2 (02:00→12:30)
[2021-04-04 02:56] VITALS: BP 131/78
[2021-04-04 07:00] VITALS: BP 126/78
--- NOTE | 2021-04-04 09:05 | PDOC ---
SURGICAL PROGRESS NOTE DATE: 04/04/21 TIME: 09:04 Subjective Patient states she is feeling better has passed quite a bit of flatus has been up walking the halls Vital Signs Vital Signs Date Time Temp Pulse Resp B/P (MAP) Pulse Ox O2 Delivery O2 Flow Rate FiO2 04/04/21 07:00 98.3 94 18 126/78 (94) 98 Room Air 98.3 PATIENT HAS A ARNDT: No General: Alert, Oriented X3, Cooperative, No acute distress Abdomen: Normal bowel sounds, Soft, Other (Mild incisional tenderness wounds clean dry and intact NG tube in place with minimal bilious output) Labs Laboratory Tests Test 04/03/21 09:15 White Blood Count 8.5 x10^3/uL (4.0-11.0) Red Blood Count 3.66 x10^6/uL (3.50-5.40) Hemoglobin 11.1 g/dL (12.0-15.5) Hematocrit 32.9 % (36.0-47.0) Mean Corpuscular Volume 90 fL (79-100) Mean Corpuscular Hemoglobin 30 pg (25-35) Mean Corpuscular Hemoglobin Concent 34 g/dL (31-37) Red Cell Distribution Width 11.8 % (11.5-14.5) Platelet Count 170 x10^3/uL (140-400) Neutrophils (%) (Auto) 65 % (31-73) Lymphocytes (%) (Auto) 23 % (24-48) Monocytes (%) (Auto) 11 % (0-9) Eosinophils (%) (Auto) 1 % (0-3) Basophils (%) (Auto) 0 % (0-3) Neutrophils # (Auto) 5.5 x10^3/uL (1.8-7.7) Lymphocytes # (Auto) 2.0 x10^3/uL (1.0-4.8) Monocytes # (Auto) 1.0 x10^3/uL (0.0-1.1) Eosinophils # (Auto) 0.1 x10^3/uL (0.0-0.7) Basophils # (Auto) 0.0 x10^3/uL (0.0-0.2) Sodium Level 141 mmol/L (136-145) Potassium Level 3.5 mmol/L (3.5-5.1) Chloride Level 105 mmol/L (98-107) Carbon Dioxide Level 26 mmol/L (21-32) Anion Gap 10 (6-14) Blood Urea Nitrogen 11 mg/dL (7-20) Creatinine 0.9 mg/dL (0.6-1.0) Estimated GFR (Cockcroft-Gault) 71.7 BUN/Creatinine Ratio 12 (6-20) Glucose Level 84 mg/dL (70-99) Calcium Level 8.0 mg/dL (8.5-10.1) Phosphorus Level 2.3 mg/dL (2.6-4.7) Magnesium Level 1.8 mg/dL (1.8-2.4) Total Bilirubin 1.5 mg/dL (0.2-1.0) Aspartate Amino Transf (AST/SGOT) 26 U/L (15-37) Alanine Aminotransferase (ALT/SGPT) 17 U/L (14-59) Alkaline Phosphatase 52 U/L (46-116) Total Protein 6.2 g/dL (6.4-8.2) Albumin 2.7 g/dL (3.4-5.0) Albumin/Globulin Ratio 0.8 (1.0-1.7) Triglycerides Level 124 mg/dL (0-150) Laboratory Tests Test 04/03/21 09:15 White Blood Count 8.5 x10^3/uL (4.0-11.0) Red Blood Count 3.66 x10^6/uL (3.50-5.40) Hemoglobin 11.1 g/dL (12.0-15.5) Hematocrit 32.9 % (36.0-47.0) Mean Corpuscular Volume 90 fL (79-100) Mean Corpuscular Hemoglobin 30 pg (25-35) Mean Corpuscular Hemoglobin Concent 34 g/dL (31-37) Red Cell Distribution Width 11.8 % (11.5-14.5) Platelet Count 170 x10^3/uL (140-400) Neutrophils (%) (Auto) 65 % (31-73) Lymphocytes (%) (Auto) 23 % (24-48) Monocytes (%) (Auto) 11 % (0-9) Eosinophils (%) (Auto) 1 % (0-3) Basophils (%) (Auto) 0 % (0-3) Neutrophils # (Auto) 5.5 x10^3/uL (1.8-7.7) Lymphocytes # (Auto) 2.0 x10^3/uL (1.0-4.8) Monocytes # (Auto) 1.0 x10^3/uL (0.0-1.1) Eosinophils # (Auto) 0.1 x10^3/uL (0.0-0.7) Basophils # (Auto) 0.0 x10^3/uL (0.0-0.2) Sodium Level 141 mmol/L (136-145) Potassium Level 3.5 mmol/L (3.5-5.1) Chloride Level 105 mmol/L (98-107) Carbon Dioxide Level 26 mmol/L (21-32) Anion Gap 10 (6-14) Blood Urea Nitrogen 11 mg/dL (7-20) Creatinine 0.9 mg/dL (0.6-1.0) Estimated GFR (Cockcroft-Gault) 71.7 BUN/Creatinine Ratio 12 (6-20) Glucose Level 84 mg/dL (70-99) Calcium Level 8.0 mg/dL (8.5-10.1) Phosphorus Level 2.3 mg/dL (2.6-4.7) Magnesium Level 1.8 mg/dL (1.8-2.4) Total Bilirubin 1.5 mg/dL (0.2-1.0) Aspartate Amino Transf (AST/SGOT) 26 U/L (15-37) Alanine Aminotransferase (ALT/SGPT) 17 U/L (14-59) Alkaline Phosphatase 52 U/L (46-116) Total Protein 6.2 g/dL (6.4-8.2) Albumin 2.7 g/dL (3.4-5.0) Albumin/Globulin Ratio 0.8 (1.0-1.7) Triglycerides Level 124 mg/dL (0-150) Assessment/Plan Status post Omar's procedure awaiting return of bowel function we will clamp NG tube today Justicifation of Admission Dx: Justifications for Admission: Justification of Admission Dx: Yes BOB GRAHAM MD Apr 04, 2021 09:05
[2021-04-04] MEDS: SENNOSIDES/DOCUSATE 8.6/50MG TABLET. PO SCH ×2 (10:11→21:04)
[2021-04-04] MEDS: PANTOPRAZOLE 40 MG TABLET.DR. PO SCH (10:11)
[2021-04-04] MEDS: ENOXAPARIN 40 MG/0.4 ML SYRINGE. SQ SCH (10:11)
[2021-04-04 10:58] LABS: CALCIUM 8.1 mg/dL (8.5-10.1); CREATININE 0.9 mg/dL (0.6-1.0); GFR 71.7; MAGNESIUM 1.9 mg/dL (1.8-2.4); PHOSPHORUS 2.6 mg/dL (2.6-4.7); POTASSIUM 3.6 mmol/L (3.5-5.1)
[2021-04-04 11:00] VITALS: BP 142/81
[2021-04-04] MEDS: HYDROmorphone 12mg/30ml PCA 30 ML IV PRN (11:23)
[2021-04-04] MEDS: ONDANSETRON PF 4 MG/2 ML VIAL. IVP PRN (11:33)
[2021-04-04] MEDS: TPN PER PHARMACY MC PRN ×2 (11:46→11:49)
--- NOTE | 2021-04-04 11:48 | NUR ---
Pharmacy TPN Dosing Note S: EVELIA ALVAREZ is a 36 year old F Currently receiving Central Continuous TPN started 04/03/21 B:Pertinent PMH: S/P ex lap; awaiting bowel function return Height: 5 feet, 11 inches Weight: 115.0 kg Current diet: npo LABS: Sodium: 141 Potassium: 3.6 Chloride: 104 Calcium: 8.1 Corrected Calcium: 9.14 Magnesium: 1.9 CO2: 28 SCr: 0.9 Glucose: 114 Albumin: 2.7 AST: 26 ALT: 17 TPN FORMULA: TPN TYPE: Central Continuous AMINO ACIDS: 60 gm DEXTROSE: 195 gm LIPIDS: 20 gm SODIUM CHLORIDE: 90 mEq POTASSIUM CHLORIDE: 50 mEq POTASSIUM PHOSPHATE: 13.6 mmol MAGNESIUM: 10 mEq CALCIUM: 10 mEq MULTIPLE VITAMIN: 5 ml TRACE ELEMENTS: 1 ml(s) TPN PLAN: Continue same R: Continue TPN Will monitor electrolytes, glucose, and tolerance to TPN. Rhonda Pritchard [facility], 04/04/21 [id number]
[2021-04-04 13:20] LABS: BASO # 0.1 x10^3/uL (0.0-0.2); BASO % 1 % (0-3); EOS # 0.1 x10^3/uL (0.0-0.7); EOS % 1 % (0-3); HEMATOCRIT 30.3 % (36.0-47.0); HEMOGLOBIN 10.4 g/dL (12.0-15.5); LYMPH # 1.4 x10^3/uL (1.0-4.8); LYMPH % 16 % (24-48); MEAN CORPUSCULAR HEMOGLOBIN 31 pg (25-35); MEAN CORPUSCULAR HGB CONC 34 g/dL (31-37); MEAN CORPUSCULAR VOLUME 89 fL (79-100); MONO # 0.9 x10^3/uL (0.0-1.1); MONO % 10 % (0-9); NEUT # 6.4 x10^3/uL (1.8-7.7); NEUT % 73 % (31-73); PLATELET COUNT 155 x10^3/uL (140-400); RED BLOOD COUNT 3.41 x10^6/uL (3.50-5.40); RED CELL DISTRIBUTION WIDTH 12.1 % (11.5-14.5); WHITE BLOOD COUNT 8.9 x10^3/uL (4.0-11.0)
[2021-04-04 15:00] VITALS: BP 141/91
[2021-04-04 19:00] VITALS: BP 149/97
[2021-04-04] MEDS ORDERED: TOTAL PARENTERAL NUTRITION 1,429.9614 ML, AMINO ACID 15% 60 GM, DEXTROSE 70 % IN WATER ... IV SCH (22:00)
[2021-04-04 23:00] VITALS: BP 139/86
[2021-04-05 02:54] VITALS: BP 146/87
[2021-04-05] MEDS: IV NORMAL SALINE 1000ML BAG 1,000 ML IV SCH ×3 (05:27→15:04)
[2021-04-05] MEDS: HYDROmorphone 12mg/30ml PCA 30 ML IV PRN ×2 (07:08→22:00)
[2021-04-05 07:39] LABS: CREATININE 0.7 mg/dL (0.6-1.0); GFR 95.8; MAGNESIUM 1.9 mg/dL (1.8-2.4); PHOSPHORUS 3.2 mg/dL (2.6-4.7); POTASSIUM 3.4 mmol/L (3.5-5.1)
[2021-04-05 08:00] VITALS: BP 139/90
[2021-04-05] MEDS: PANTOPRAZOLE 40 MG TABLET.DR. PO SCH (08:32)
[2021-04-05] MEDS: ENOXAPARIN 40 MG/0.4 ML SYRINGE. SQ SCH (08:32)
[2021-04-05] MEDS: SENNOSIDES/DOCUSATE 8.6/50MG TABLET. PO SCH ×2 (08:32→21:10)
--- NOTE | 2021-04-05 08:54 | PDOC ---
SURGICAL PROGRESS NOTE DATE: 04/05/21 TIME: 08:51 Subjective ng out no nausea pain managed Vital Signs Vital Signs Date Time Temp Pulse Resp B/P (MAP) Pulse Ox O2 Delivery O2 Flow Rate FiO2 04/05/21 08:33 Room Air 04/05/21 08:00 98.1 92 18 139/90 (106) 93 98.1 I&O Intake and Output 04/05/21 07:00 Intake Total 1460 ml Output Total 0 ml Balance 1460 ml Intake Oral 1460 ml Output Urine Total 0 ml # Voids 3 General: Alert, Oriented X3, Cooperative Abdomen: Soft, Other (dressing dry) Labs Laboratory Tests Test 04/03/21 09:15 04/04/21 10:20 04/04/21 12:47 04/05/21 04:15 White Blood Count 8.5 x10^3/uL (4.0-11.0) 8.9 x10^3/uL (4.0-11.0) Red Blood Count 3.66 x10^6/uL (3.50-5.40) 3.41 x10^6/uL (3.50-5.40) Hemoglobin 11.1 g/dL (12.0-15.5) 10.4 g/dL (12.0-15.5) Hematocrit 32.9 % (36.0-47.0) 30.3 % (36.0-47.0) Mean Corpuscular Volume 90 fL (79-100) 89 fL (79-100) Mean Corpuscular Hemoglobin 30 pg (25-35) 31 pg (25-35) Mean Corpuscular Hemoglobin Concent 34 g/dL (31-37) 34 g/dL (31-37) Red Cell Distribution Width 11.8 % (11.5-14.5) 12.1 % (11.5-14.5) Platelet Count 170 x10^3/uL (140-400) 155 x10^3/uL (140-400) Neutrophils (%) (Auto) 65 % (31-73) 73 % (31-73) Lymphocytes (%) (Auto) 23 % (24-48) 16 % (24-48) Monocytes (%) (Auto) 11 % (0-9) 10 % (0-9) Eosinophils (%) (Auto) 1 % (0-3) 1 % (0-3) Basophils (%) (Auto) 0 % (0-3) 1 % (0-3) Neutrophils # (Auto) 5.5 x10^3/uL (1.8-7.7) 6.4 x10^3/uL (1.8-7.7) Lymphocytes # (Auto) 2.0 x10^3/uL (1.0-4.8) 1.4 x10^3/uL (1.0-4.8) Monocytes # (Auto) 1.0 x10^3/uL (0.0-1.1) 0.9 x10^3/uL (0.0-1.1) Eosinophils # (Auto) 0.1 x10^3/uL (0.0-0.7) 0.1 x10^3/uL (0.0-0.7) Basophils # (Auto) 0.0 x10^3/uL (0.0-0.2) 0.1 x10^3/uL (0.0-0.2) Sodium Level 141 mmol/L (136-145) 141 mmol/L (136-145) 142 mmol/L (136-145) Potassium Level 3.5 mmol/L (3.5-5.1) 3.6 mmol/L (3.5-5.1) 3.4 mmol/L (3.5-5.1) Chloride Level 105 mmol/L (98-107) 104 mmol/L (98-107) 104 mmol/L (98-107) Carbon Dioxide Level 26 mmol/L (21-32) 28 mmol/L (21-32) 28 mmol/L (21-32) Anion Gap 10 (6-14) 9 (6-14) 10 (6-14) Blood Urea Nitrogen 11 mg/dL (7-20) 7 mg/dL (7-20) 6 mg/dL (7-20) Creatinine 0.9 mg/dL (0.6-1.0) 0.9 mg/dL (0.6-1.0) 0.7 mg/dL (0.6-1.0) Estimated GFR (Cockcroft-Gault) 71.7 71.7 95.8 BUN/Creatinine Ratio 12 (6-20) Glucose Level 84 mg/dL (70-99) 114 mg/dL (70-99) 106 mg/dL (70-99) Calcium Level 8.0 mg/dL (8.5-10.1) 8.1 mg/dL (8.5-10.1) 8.0 mg/dL (8.5-10.1) Phosphorus Level 2.3 mg/dL (2.6-4.7) 2.6 mg/dL (2.6-4.7) 3.2 mg/dL (2.6-4.7) Magnesium Level 1.8 mg/dL (1.8-2.4) 1.9 mg/dL (1.8-2.4) 1.9 mg/dL (1.8-2.4) Total Bilirubin 1.5 mg/dL (0.2-1.0) Aspartate Amino Transf (AST/SGOT) 26 U/L (15-37) Alanine Aminotransferase (ALT/SGPT) 17 U/L (14-59) Alkaline Phosphatase 52 U/L (46-116) Total Protein 6.2 g/dL (6.4-8.2) Albumin 2.7 g/dL (3.4-5.0) Albumin/Globulin Ratio 0.8 (1.0-1.7) Triglycerides Level 124 mg/dL (0-150) Laboratory Tests Test 04/04/21 10:20 04/04/21 12:47 04/05/21 04:15 Sodium Level 141 mmol/L (136-145) 142 mmol/L (136-145) Potassium Level 3.6 mmol/L (3.5-5.1) 3.4 mmol/L (3.5-5.1) Chloride Level 104 mmol/L (98-107) 104 mmol/L (98-107) Carbon Dioxide Level 28 mmol/L (21-32) 28 mmol/L (21-32) Anion Gap 9 (6-14) 10 (6-14) Blood Urea Nitrogen 7 mg/dL (7-20) 6 mg/dL (7-20) Creatinine 0.9 mg/dL (0.6-1.0) 0.7 mg/dL (0.6-1.0) Estimated GFR (Cockcroft-Gault) 71.7 95.8 Glucose Level 114 mg/dL (70-99) 106 mg/dL (70-99) Calcium Level 8.1 mg/dL (8.5-10.1) 8.0 mg/dL (8.5-10.1) Phosphorus Level 2.6 mg/dL (2.6-4.7) 3.2 mg/dL (2.6-4.7) Magnesium Level 1.9 mg/dL (1.8-2.4) 1.9 mg/dL (1.8-2.4) White Blood Count 8.9 x10^3/uL (4.0-11.0) Red Blood Count 3.41 x10^6/uL (3.50-5.40) Hemoglobin 10.4 g/dL (12.0-15.5) Hematocrit 30.3 % (36.0-47.0) Mean Corpuscular Volume 89 fL (79-100) Mean Corpuscular Hemoglobin 31 pg (25-35) Mean Corpuscular Hemoglobin Concent 34 g/dL (31-37) Red Cell Distribution Width 12.1 % (11.5-14.5) Platelet Count 155 x10^3/uL (140-400) Neutrophils (%) (Auto) 73 % (31-73) Lymphocytes (%) (Auto) 16 % (24-48) Monocytes (%) (Auto) 10 % (0-9) Eosinophils (%) (Auto) 1 % (0-3) Basophils (%) (Auto) 1 % (0-3) Neutrophils # (Auto) 6.4 x10^3/uL (1.8-7.7) Lymphocytes # (Auto) 1.4 x10^3/uL (1.0-4.8) Monocytes # (Auto) 0.9 x10^3/uL (0.0-1.1) Eosinophils # (Auto) 0.1 x10^3/uL (0.0-0.7) Basophils # (Auto) 0.1 x10^3/uL (0.0-0.2) Problem List clear clear liquids today Justicifation of Admission Dx: Justifications for Admission: Justification of Admission Dx: Yes SISI MAYER APRN Apr 05, 2021 08:54
--- NOTE | 2021-04-05 10:00 | NUR ---
SW following. Discussed with RN, pt from home, room air, advanced to clear liquid diet today. 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 Awaiting return of bowel function. RN advised no SW needs at this time. SW will continue to follow.
[2021-04-05 11:00] VITALS: BP 136/71
[2021-04-05] MEDS ORDERED: ACETAMINOPHEN 325 MG TABLET. PO PRN (12:00)
[2021-04-05] MEDS: TPN PER PHARMACY MC PRN ×2 (12:25→12:29)
--- NOTE | 2021-04-05 12:28 | NUR ---
Pharmacy TPN Dosing Note S: EVELIA ALVAREZ is a 36 year old F Currently receiving Central Continuous TPN started 04/03/21 B:Pertinent PMH: S/P ex lap; awaiting bowel function return Height: 5 feet, 11 inches Weight: 115.0 kg Current diet: Clears LABS: Sodium: 142 Potassium: 3.4 Chloride: 104 Calcium: 8.0 Corrected Calcium: 9.04 Magnesium: 1.9 CO2: 28 SCr: 0.7 Glucose: 106 Albumin: 2.7 AST: 26 ALT: 17 TPN FORMULA: TPN TYPE: Central Continuous AMINO ACIDS: 60 gm DEXTROSE: 195 gm LIPIDS: 20 gm SODIUM CHLORIDE: 90 mEq POTASSIUM CHLORIDE: 70 mEq POTASSIUM PHOSPHATE: 13.6 mmol MAGNESIUM: 10 mEq CALCIUM: 10 mEq MULTIPLE VITAMIN: 5 ml TRACE ELEMENTS: 1 ml(s) TPN PLAN: Potassium incrased to 70meq/bag. R: Change TPN per plan and ordered formula Will monitor electrolytes, glucose, and tolerance to TPN. Rhonda Pritchard [facility], 04/05/21 [id number]
[2021-04-05 14:27] VITALS: BP 136/76
[2021-04-05] MEDS ORDERED: ASA/APAP/CAFFEINE 250/250/65MG TABLET. PO PRN (15:00)
[2021-04-05 19:00] VITALS: BP 136/82
[2021-04-05] MEDS ORDERED: [UNRECOGNIZED DRUG - OTHER] IV SCH (22:00)
[2021-04-05] MEDS ORDERED: TOTAL PARENTERAL NUTRITION IV SCH (22:00)
[2021-04-05] MEDS ORDERED: AMINO ACID IV SCH (22:00)
[2021-04-05] MEDS ORDERED: DEXTROSE 70% IV SCH (22:00)
[2021-04-05 23:00] VITALS: BP 120/70
[2021-04-06 03:00] VITALS: BP 152/93
[2021-04-06] MEDS: IV NORMAL SALINE 1000ML BAG 1,000 ML IV SCH ×3 (03:14→23:57)
[2021-04-06] MEDS: ONDANSETRON PF 4 MG/2 ML VIAL. IVP PRN ×3 (03:35→23:10)
[2021-04-06 05:44] LABS: CALCIUM 8.5 mg/dL (8.5-10.1); CREATININE 0.7 mg/dL (0.6-1.0); GFR 95.8; MAGNESIUM 1.9 mg/dL (1.8-2.4); PHOSPHORUS 3.8 mg/dL (2.6-4.7); POTASSIUM 4.1 mmol/L (3.5-5.1)
[2021-04-06 06:54] VITALS: BP 128/72
[2021-04-06] MEDS: SENNOSIDES/DOCUSATE 8.6/50MG TABLET. PO SCH ×2 (08:25→21:19)
[2021-04-06] MEDS: ENOXAPARIN 40 MG/0.4 ML SYRINGE. SQ SCH (08:26)
[2021-04-06] MEDS: PANTOPRAZOLE 40 MG TABLET.DR. PO SCH (08:26)
[2021-04-06] MEDS: PROCHLORPERAZINE 10 MG/2 ML VIAL. IV PRN (08:54)
[2021-04-06] MEDS: TPN PER PHARMACY MC PRN (09:47)
--- NOTE | 2021-04-06 09:49 | NUR ---
Pharmacy TPN Dosing Note S: EVELIA ALVAREZ is a 36 year old F Currently receiving Central Continuous TPN started 04/03/21 B:Pertinent PMH: S/P ex lap; awaiting bowel function return Current diet: Clears LABS: Sodium: 140 Potassium: 4.1 Chloride: 105 Calcium: 8.5 Corrected Calcium: 9.54 Magnesium: 1.9 CO2: 29 SCr: 0.7 Glucose: 114 Albumin: 2.7 AST: 26 ALT: 17 TPN FORMULA: TPN TYPE: Central Continuous AMINO ACIDS: 60 gm DEXTROSE: 195 gm LIPIDS: 20 gm SODIUM CHLORIDE: 90 mEq SODIUM ACETATE: - mEq SODIUM PHOSPHATE: - mmol POTASSIUM CHLORIDE: 70 mEq POTASSIUM ACETATE: - mEq POTASSIUM PHOSPHATE: 13.6 mmol MAGNESIUM: 10 mEq CALCIUM: 10 mEq INSULIN: - units MULTIPLE VITAMIN: 5 ml TRACE ELEMENTS: 1 ml(s) TPN PLAN: 04/06 CONT SAME TPN R: Continue TPN Will monitor electrolytes, glucose, and tolerance to TPN. KATHERIN ROSADO [facility], 04/06/21 [id number]
--- NOTE | 2021-04-06 09:50 | PDOC ---
SURGICAL PROGRESS NOTE DATE: 04/06/21 TIME: 09:48 Subjective did have stool this AM but had a rough night, nausea, tired, emesis Vital Signs Vital Signs Date Time Temp Pulse Resp B/P (MAP) Pulse Ox O2 Delivery O2 Flow Rate FiO2 04/06/21 06:54 98.4 91 18 128/72 (90) 97 Room Air 98.4 I&O Intake and Output 04/06/21 07:00 Intake Total 750 ml Output Total 400 ml Balance 350 ml Intake Oral 750 ml Emesis 400 ml # Voids 2 General: Alert, Cooperative Abdomen: Soft, Other (incision c/d/i) Labs Laboratory Tests Test 04/04/21 10:20 04/04/21 12:47 04/05/21 04:15 04/06/21 04:40 Sodium Level 141 mmol/L (136-145) 142 mmol/L (136-145) 140 mmol/L (136-145) Potassium Level 3.6 mmol/L (3.5-5.1) 3.4 mmol/L (3.5-5.1) 4.1 mmol/L (3.5-5.1) Chloride Level 104 mmol/L (98-107) 104 mmol/L (98-107) 105 mmol/L (98-107) Carbon Dioxide Level 28 mmol/L (21-32) 28 mmol/L (21-32) 29 mmol/L (21-32) Anion Gap 9 (6-14) 10 (6-14) 6 (6-14) Blood Urea Nitrogen 7 mg/dL (7-20) 6 mg/dL (7-20) 5 mg/dL (7-20) Creatinine 0.9 mg/dL (0.6-1.0) 0.7 mg/dL (0.6-1.0) 0.7 mg/dL (0.6-1.0) Estimated GFR (Cockcroft-Gault) 71.7 95.8 95.8 Glucose Level 114 mg/dL (70-99) 106 mg/dL (70-99) 114 mg/dL (70-99) Calcium Level 8.1 mg/dL (8.5-10.1) 8.0 mg/dL (8.5-10.1) 8.5 mg/dL (8.5-10.1) Phosphorus Level 2.6 mg/dL (2.6-4.7) 3.2 mg/dL (2.6-4.7) 3.8 mg/dL (2.6-4.7) Magnesium Level 1.9 mg/dL (1.8-2.4) 1.9 mg/dL (1.8-2.4) 1.9 mg/dL (1.8-2.4) White Blood Count 8.9 x10^3/uL (4.0-11.0) Red Blood Count 3.41 x10^6/uL (3.50-5.40) Hemoglobin 10.4 g/dL (12.0-15.5) Hematocrit 30.3 % (36.0-47.0) Mean Corpuscular Volume 89 fL (79-100) Mean Corpuscular Hemoglobin 31 pg (25-35) Mean Corpuscular Hemoglobin Concent 34 g/dL (31-37) Red Cell Distribution Width 12.1 % (11.5-14.5) Platelet Count 155 x10^3/uL (140-400) Neutrophils (%) (Auto) 73 % (31-73) Lymphocytes (%) (Auto) 16 % (24-48) Monocytes (%) (Auto) 10 % (0-9) Eosinophils (%) (Auto) 1 % (0-3) Basophils (%) (Auto) 1 % (0-3) Neutrophils # (Auto) 6.4 x10^3/uL (1.8-7.7) Lymphocytes # (Auto) 1.4 x10^3/uL (1.0-4.8) Monocytes # (Auto) 0.9 x10^3/uL (0.0-1.1) Eosinophils # (Auto) 0.1 x10^3/uL (0.0-0.7) Basophils # (Auto) 0.1 x10^3/uL (0.0-0.2) Laboratory Tests Test 04/06/21 04:40 Sodium Level 140 mmol/L (136-145) Potassium Level 4.1 mmol/L (3.5-5.1) Chloride Level 105 mmol/L (98-107) Carbon Dioxide Level 29 mmol/L (21-32) Anion Gap 6 (6-14) Blood Urea Nitrogen 5 mg/dL (7-20) Creatinine 0.7 mg/dL (0.6-1.0) Estimated GFR (Cockcroft-Gault) 95.8 Glucose Level 114 mg/dL (70-99) Calcium Level 8.5 mg/dL (8.5-10.1) Phosphorus Level 3.8 mg/dL (2.6-4.7) Magnesium Level 1.9 mg/dL (1.8-2.4) Assessment/Plan clears, increase activity will dc unix administrator once able to advance diet Justicifation of Admission Dx: Justifications for Admission: Justification of Admission Dx: Yes SISI MAYER APRN Apr 06, 2021 09:50
[2021-04-06 10:31] VITALS: BP 127/78
[2021-04-06 14:27] VITALS: BP 122/79
--- NOTE | 2021-04-06 15:24 | NUR ---
SS following up with discharge planning. SS reviewed pt chart and discussed with pt RN. Pt is currently on room air. 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 Discharge plan is to home when medically ready. SS will continue to follow for discharge planning.
--- NOTE | 2021-04-06 15:45 | NUR ---
Pt. vomited approx. 200cc of thin green, bile like emesis. pt. states it come on suddenly. Dr. Epifanio markham.
--- NOTE | 2021-04-06 15:55 | NUR ---
Dr. Godfrey notified of pt vomiting. No new orders received at this time.
[2021-04-06 19:00] VITALS: BP 115/62
[2021-04-06] MEDS ORDERED: DEXTROSE 70% IV SCH (22:00)
[2021-04-06] MEDS ORDERED: [UNRECOGNIZED DRUG - OTHER] IV SCH (22:00)
[2021-04-06] MEDS ORDERED: AMINO ACID IV SCH (22:00)
[2021-04-06] MEDS ORDERED: TOTAL PARENTERAL NUTRITION IV SCH (22:00)
[2021-04-06 23:00] VITALS: BP 129/75
[2021-04-07 02:45] VITALS: BP 128/82
[2021-04-07] MEDS: PANTOPRAZOLE 40 MG TABLET.DR. PO SCH (05:46)
[2021-04-07] MEDS: ONDANSETRON PF 4 MG/2 ML VIAL. IVP PRN ×2 (05:49→19:28)
[2021-04-07 07:00] VITALS: BP 110/66
[2021-04-07] MEDS: SENNOSIDES/DOCUSATE 8.6/50MG TABLET. PO SCH ×2 (08:39→21:00)
[2021-04-07] MEDS: ENOXAPARIN 40 MG/0.4 ML SYRINGE. SQ SCH (08:39)
[2021-04-07] MEDS: IV NORMAL SALINE 1000ML BAG 1,000 ML IV SCH ×2 (08:40→17:00)
[2021-04-07 11:00] VITALS: BP 115/73
[2021-04-07 11:51] LABS: ALBUMIN 3.4 g/dL (3.4-5.0); ALBUMIN/GLOBULIN RATIO 0.8 (1.0-1.7); CALCIUM 9.4 mg/dL (8.5-10.1); CREATININE 0.8 mg/dL (0.6-1.0); GFR 82.1; POTASSIUM 4.1 mmol/L (3.5-5.1); TOTAL BILIRUBIN 0.6 mg/dL (0.2-1.0); TOTAL PROTEIN 7.6 g/dL (6.4-8.2)
--- NOTE | 2021-04-07 13:26 | NUR ---
SS following up with discharge planning. SS reviewed pt chart and discussed with pt RN. Pt is currently on room air. Pt on TPN and PROCESS CONTROL TECH. Clear liquid diet. Discharge plan is to home when medically ready. SS will continue to follow for discharge planning.
--- NOTE | 2021-04-07 13:36 | PDOC ---
SURGICAL PROGRESS NOTE DATE: 04/07/21 TIME: 13:35 Subjective Pt with extensive N/V yesterday, but improved today, multiple stools currently. Pain controlled and off [employer]. Vital Signs Vital Signs Date Time Temp Pulse Resp B/P (MAP) Pulse Ox O2 Delivery O2 Flow Rate FiO2 04/07/21 11:00 98.6 80 17 115/73 (87) 97 Room Air 98.6 I&O Intake and Output 04/07/21 07:00 Intake Total 0 ml Output Total 200 ml Balance -200 ml Intake Oral 0 ml Emesis 200 ml # Voids 1 # Bowel Movements 2 General: Alert, Oriented X3, Cooperative, No acute distress Abdomen: Soft, No tenderness Labs Laboratory Tests Test 04/06/21 04:40 04/07/21 11:15 Sodium Level 140 mmol/L (136-145) 143 mmol/L (136-145) Potassium Level 4.1 mmol/L (3.5-5.1) 4.1 mmol/L (3.5-5.1) Chloride Level 105 mmol/L (98-107) 106 mmol/L (98-107) Carbon Dioxide Level 29 mmol/L (21-32) 27 mmol/L (21-32) Anion Gap 6 (6-14) 10 (6-14) Blood Urea Nitrogen 5 mg/dL (7-20) 6 mg/dL (7-20) Creatinine 0.7 mg/dL (0.6-1.0) 0.8 mg/dL (0.6-1.0) Estimated GFR (Cockcroft-Gault) 95.8 82.1 Glucose Level 114 mg/dL (70-99) 117 mg/dL (70-99) Calcium Level 8.5 mg/dL (8.5-10.1) 9.4 mg/dL (8.5-10.1) Phosphorus Level 3.8 mg/dL (2.6-4.7) Magnesium Level 1.9 mg/dL (1.8-2.4) BUN/Creatinine Ratio 8 (6-20) Total Bilirubin 0.6 mg/dL (0.2-1.0) Aspartate Amino Transf (AST/SGOT) 44 U/L (15-37) Alanine Aminotransferase (ALT/SGPT) 46 U/L (14-59) Alkaline Phosphatase 103 U/L (46-116) Total Protein 7.6 g/dL (6.4-8.2) Albumin 3.4 g/dL (3.4-5.0) Albumin/Globulin Ratio 0.8 (1.0-1.7) Laboratory Tests Test 04/07/21 11:15 Sodium Level 143 mmol/L (136-145) Potassium Level 4.1 mmol/L (3.5-5.1) Chloride Level 106 mmol/L (98-107) Carbon Dioxide Level 27 mmol/L (21-32) Anion Gap 10 (6-14) Blood Urea Nitrogen 6 mg/dL (7-20) Creatinine 0.8 mg/dL (0.6-1.0) Estimated GFR (Cockcroft-Gault) 82.1 BUN/Creatinine Ratio 8 (6-20) Glucose Level 117 mg/dL (70-99) Calcium Level 9.4 mg/dL (8.5-10.1) Total Bilirubin 0.6 mg/dL (0.2-1.0) Aspartate Amino Transf (AST/SGOT) 44 U/L (15-37) Alanine Aminotransferase (ALT/SGPT) 46 U/L (14-59) Alkaline Phosphatase 103 U/L (46-116) Total Protein 7.6 g/dL (6.4-8.2) Albumin 3.4 g/dL (3.4-5.0) Albumin/Globulin Ratio 0.8 (1.0-1.7) Assessment/Plan s/p nima's procedure will try soft diet cont TPN Justicifation of Admission Dx: Justifications for Admission: Justification of Admission Dx: Yes WILNER HERNANDEZ MD Apr 07, 2021 13:36
[2021-04-07] MEDS: TPN PER PHARMACY MC PRN (14:31)
--- NOTE | 2021-04-07 14:35 | NUR ---
Pharmacy TPN Dosing Note S: EVELIA ALVAREZ is a 36 year old F Currently receiving Central Continuous TPN started 04/03/21 B:Pertinent PMH: S/P ex lap; awaiting bowel function return Current diet: Clears LABS: Sodium: 143 Potassium: 4.1 Chloride: 106 Calcium: 9.4 Corrected Calcium: 9.88 Magnesium: 1.9 CO2: 27 SCr: 0.8 Glucose: 117 Albumin: 3.4 AST: 44 ALT: 1746 TPN FORMULA: TPN TYPE: Central Continuous AMINO ACIDS: 60 gm DEXTROSE: 195 gm LIPIDS: 20 gm SODIUM CHLORIDE: 90 mEq SODIUM ACETATE: - mEq SODIUM PHOSPHATE: - mmol POTASSIUM CHLORIDE: 70 mEq POTASSIUM ACETATE: - mEq POTASSIUM PHOSPHATE: 13.6 mmol MAGNESIUM: 10 mEq CALCIUM: 10 mEq INSULIN: - units MULTIPLE VITAMIN: 5 ml TRACE ELEMENTS: 1 ml(s) TPN PLAN: 04/07 CONT SAME TPN R: Continue TPN Will monitor electrolytes, glucose, and tolerance to TPN. KATHERIN ROSADO [facility], 04/07/21 [id number]
[2021-04-07 15:00] VITALS: BP 126/65
[2021-04-07] MEDS: PROCHLORPERAZINE 10 MG/2 ML VIAL. IV PRN ×2 (16:10→22:22)
--- NOTE | 2021-04-07 16:42 | NUR ---
Patient vomited 1L of green bile. Notified Dr. Godfrey, new orders to keep patient NPO and if patient vomits again then insert NG tube.
[2021-04-07] MEDS: MORPHINE SULFATE 2 MG/ML VIAL. IVP PRN ×4 (17:10→23:35)
[2021-04-07] MEDS ORDERED: MORPHINE SULFATE 2 MG/ML VIAL. IVP ONE (17:15)
[2021-04-07 19:00] VITALS: BP 132/76
[2021-04-07] MEDS ORDERED: diphenhydrAMINE 50 MG/ML VIAL IVP ONE (22:00)
[2021-04-07] MEDS ORDERED: TOTAL PARENTERAL NUTRITION IV SCH (22:00)
[2021-04-07] MEDS ORDERED: DEXTROSE 70% IV SCH (22:00)
[2021-04-07] MEDS ORDERED: AMINO ACID IV SCH (22:00)
[2021-04-07] MEDS ORDERED: [UNRECOGNIZED DRUG - OTHER] IV SCH (22:00)
[2021-04-07 23:00] VITALS: BP 118/69
[2021-04-08] MEDS: IV NORMAL SALINE 1000ML BAG 1,000 ML IV SCH ×2 (05:49→14:16)
[2021-04-08] MEDS: MORPHINE SULFATE 2 MG/ML VIAL. IVP PRN ×7 (05:50→21:43)
[2021-04-08 07:00] VITALS: BP 122/73
[2021-04-08] MEDS: PANTOPRAZOLE 40 MG TABLET.DR. PO SCH (07:30)
[2021-04-08] MEDS: SENNOSIDES/DOCUSATE 8.6/50MG TABLET. PO SCH ×2 (07:49→20:30)
[2021-04-08] MEDS: ENOXAPARIN 40 MG/0.4 ML SYRINGE. SQ SCH (08:23)
--- NOTE | 2021-04-08 09:26 | PDOC ---
SURGICAL PROGRESS NOTE DATE: 04/08/21 TIME: 09:23 Subjective no vomiting since ate yesterday pain managed some anxiety Vital Signs Vital Signs Date Time Temp Pulse Resp B/P (MAP) Pulse Ox O2 Delivery O2 Flow Rate FiO2 04/08/21 07:09 Room Air 04/08/21 06:20 20 95 04/07/21 23:00 98.5 71 118/69 (85) 98.5 04/07/21 19:59 8.0 I&O Intake and Output 04/08/21 07:00 Intake Total 1000 ml Balance 1000 ml Intake Oral 0 ml IV Total 1000 ml # Voids 4 General: Alert, Oriented X3, Cooperative Abdomen: Soft, Other (incision intact) Labs Laboratory Tests Test 04/07/21 11:15 Sodium Level 143 mmol/L (136-145) Potassium Level 4.1 mmol/L (3.5-5.1) Chloride Level 106 mmol/L (98-107) Carbon Dioxide Level 27 mmol/L (21-32) Anion Gap 10 (6-14) Blood Urea Nitrogen 6 mg/dL (7-20) Creatinine 0.8 mg/dL (0.6-1.0) Estimated GFR (Cockcroft-Gault) 82.1 BUN/Creatinine Ratio 8 (6-20) Glucose Level 117 mg/dL (70-99) Calcium Level 9.4 mg/dL (8.5-10.1) Total Bilirubin 0.6 mg/dL (0.2-1.0) Aspartate Amino Transf (AST/SGOT) 44 U/L (15-37) Alanine Aminotransferase (ALT/SGPT) 46 U/L (14-59) Alkaline Phosphatase 103 U/L (46-116) Total Protein 7.6 g/dL (6.4-8.2) Albumin 3.4 g/dL (3.4-5.0) Albumin/Globulin Ratio 0.8 (1.0-1.7) Laboratory Tests Test 04/07/21 11:15 Sodium Level 143 mmol/L (136-145) Potassium Level 4.1 mmol/L (3.5-5.1) Chloride Level 106 mmol/L (98-107) Carbon Dioxide Level 27 mmol/L (21-32) Anion Gap 10 (6-14) Blood Urea Nitrogen 6 mg/dL (7-20) Creatinine 0.8 mg/dL (0.6-1.0) Estimated GFR (Cockcroft-Gault) 82.1 BUN/Creatinine Ratio 8 (6-20) Glucose Level 117 mg/dL (70-99) Calcium Level 9.4 mg/dL (8.5-10.1) Total Bilirubin 0.6 mg/dL (0.2-1.0) Aspartate Amino Transf (AST/SGOT) 44 U/L (15-37) Alanine Aminotransferase (ALT/SGPT) 46 U/L (14-59) Alkaline Phosphatase 103 U/L (46-116) Total Protein 7.6 g/dL (6.4-8.2) Albumin 3.4 g/dL (3.4-5.0) Albumin/Globulin Ratio 0.8 (1.0-1.7) Problem List small bowel series today Justicifation of Admission Dx: Justifications for Admission: Justification of Admission Dx: Yes SISI MAYER APRN Apr 08, 2021 09:26
[2021-04-08] MEDS ORDERED: IOHEXOL 300 MG/ML 100ML VIAL. PO ONE (09:30)
[2021-04-08] MEDS ORDERED: CONTRAST GIVEN. MC PRN (09:30)
[2021-04-08] MEDS: ONDANSETRON PF 4 MG/2 ML VIAL. IVP PRN ×2 (09:33→21:45)
[2021-04-08 09:45] LABS: MAGNESIUM 1.8 mg/dL (1.8-2.4); PHOSPHORUS 4.3 mg/dL (2.6-4.7)
[2021-04-08 09:49] LABS: ALBUMIN 3.1 g/dL (3.4-5.0); CALCIUM 8.5 mg/dL (8.5-10.1); CREATININE 0.8 mg/dL (0.6-1.0); GFR 82.1; POTASSIUM 4.3 mmol/L (3.5-5.1); TOTAL BILIRUBIN 0.5 mg/dL (0.2-1.0); TOTAL PROTEIN 6.2 g/dL (6.4-8.2)
--- NOTE | 2021-04-08 09:57 | RAD ---
XR ABDOMEN 2V History: Reason: N/V 422 / Spl. Instructions: / History: Technique: Supine and upright views of the abdomen. Comparison: April 01, 2021 Findings: Ill-defined bibasilar opacities. Mildly dilated air-filled loops of small bowel within the right mid abdomen. Air and stool throughout the colon. Surgical clips right upper quadrant. Air-fluid levels wi thin the small bowel. Impression: 1. Mildly dilated small bowel with air-fluid levels in the right mid abdomen, may represent ileus or obstruction. CT can further evaluate as clinically warranted. 2. Ill-defined bibasilar opacities, may represent atelectasis or developing consolidations. Electronically signed by: Jian De La Rosa DO (04/08/2021 9:54 AM) [id number]
[2021-04-08] MEDS: TPN PER PHARMACY MC PRN (12:39)
--- NOTE | 2021-04-08 12:40 | NUR ---
Pharmacy TPN Dosing Note S: EVELIA ALVAREZ is a 36 year old F Currently receiving Central Continuous TPN started 04/03/21 B:Pertinent PMH: S/P ex lap; awaiting bowel function return Height: 5 feet, 11 inches Weight: 114.964345 kg Current diet: Clears LABS: Sodium: 143 Potassium: 4.3 Chloride: 108 Calcium: 8.5 Corrected Calcium: 9.22 Magnesium: 1.8 CO2: 24 SCr: 0.8 Glucose: 115 Albumin: 3.1 AST: 43 ALT: 47 TPN FORMULA: TPN TYPE: Central Continuous AMINO ACIDS: 60 gm DEXTROSE: 195 gm LIPIDS: 20 gm SODIUM CHLORIDE: 90 mEq POTASSIUM CHLORIDE: 70 mEq POTASSIUM PHOSPHATE: 13.6 mmol MAGNESIUM: 10 mEq CALCIUM: 10 mEq MULTIPLE VITAMIN: 5 ml TRACE ELEMENTS: 1 ml(s) TPN PLAN: continue same TPN -no labs tomorrow d/t stability R: Continue same TPN formula. Will monitor electrolytes, glucose, and tolerance to TPN. BERE GRAVES RP, 04/08/21 [id number]
[2021-04-08] MEDS: PROCHLORPERAZINE 10 MG/2 ML VIAL. IV PRN (13:31)
[2021-04-08 15:00] VITALS: BP 117/72
--- NOTE | 2021-04-08 15:23 | RAD ---
DG SMALL BOWEL FOLLOW THROUGH Indication: Reason: N/V,surgery 9 days ago gb and ladds procedure Comparison: Radiograph April 08, 2021. Technique: Following the ingestion of oral Omnipaque, serial images of the abdomen were obtained to a ssess progress of contrast throughout the small bowel. Once the contrast reached the colon, fluorosco pic evaluation of the small bowel, particularly the terminal ileum, was performed. Fluoroscopic Time: 0.9 minutes. Number of Fluoroscopic Images: 5 Findings: Moderately dilated loops of proximal small bowel measuring up to 4.4 cm. Normal abdomen proximal jeju num within the right mid abdomen compatible with known malrotation. Contrast slowly progressive past the small bowel loops into the distal small bowel. Contrast is noted within the colon at 2 hours and 15 minutes. Under direct fluoroscopic evaluation the dilated small bowel peristalsis slowly. Normal p eristalsis of distal small bowel. No well-defined stricture identified although partial stricture is possible. No obstructing mass. Surgical clips right upper quadrant. IMPRESSION: 1. Moderately dilated proximal small bowel within the right mid abdomen with slow contrast progressi on, may relate to ileus and partial stricture is possible. Recommend follow-up. Electronically signed by: Jian De La Rosa DO (04/08/2021 3:21 PM) [id number]
[2021-04-08 19:00] VITALS: BP 110/56
[2021-04-08] MEDS: diphenhydrAMINE 50 MG/ML VIAL IVP PRN (21:34)
[2021-04-08] MEDS ORDERED: [UNRECOGNIZED DRUG - OTHER] IV SCH (22:00)
[2021-04-08] MEDS ORDERED: AMINO ACID IV SCH (22:00)
[2021-04-08] MEDS ORDERED: TOTAL PARENTERAL NUTRITION IV SCH (22:00)
[2021-04-08] MEDS ORDERED: DEXTROSE 70% IV SCH (22:00)
[2021-04-08 23:00] VITALS: BP 97/57
[2021-04-09] MEDS: IV NORMAL SALINE 1000ML BAG 1,000 ML IV SCH ×3 (00:21→21:12)
[2021-04-09 03:00] VITALS: BP 98/59
[2021-04-09] MEDS: MORPHINE SULFATE 2 MG/ML VIAL. IVP PRN ×9 (04:25→23:31)
[2021-04-09 07:00] VITALS: BP 89/61
[2021-04-09] MEDS: PANTOPRAZOLE 40 MG TABLET.DR. PO SCH (07:18)
[2021-04-09] MEDS: ENOXAPARIN 40 MG/0.4 ML SYRINGE. SQ SCH (08:13)
[2021-04-09] MEDS: SENNOSIDES/DOCUSATE 8.6/50MG TABLET. PO SCH ×2 (08:43→20:33)
--- NOTE | 2021-04-09 10:28 | PDOC ---
SURGICAL PROGRESS NOTE DATE: 04/09/21 TIME: 10:27 Subjective feels better hungry no n/v Vital Signs Vital Signs Date Time Temp Pulse Resp B/P (MAP) Pulse Ox O2 Delivery O2 Flow Rate FiO2 04/09/21 09:25 Room Air 04/09/21 07:18 14 04/09/21 07:00 97.8 64 89/61 (70) 97 97.8 I&O Intake and Output 04/09/21 07:00 Intake Total 3512 ml Balance 3512 ml IV Total 3512 ml # Voids 5 General: Alert, Oriented X3, Cooperative Abdomen: Soft, Other (incision intact) Labs Laboratory Tests Test 04/07/21 11:15 04/08/21 09:00 Sodium Level 143 mmol/L (136-145) 143 mmol/L (136-145) Potassium Level 4.1 mmol/L (3.5-5.1) 4.3 mmol/L (3.5-5.1) Chloride Level 106 mmol/L (98-107) 108 mmol/L (98-107) Carbon Dioxide Level 27 mmol/L (21-32) 24 mmol/L (21-32) Anion Gap 10 (6-14) 11 (6-14) Blood Urea Nitrogen 6 mg/dL (7-20) 8 mg/dL (7-20) Creatinine 0.8 mg/dL (0.6-1.0) 0.8 mg/dL (0.6-1.0) Estimated GFR (Cockcroft-Gault) 82.1 82.1 BUN/Creatinine Ratio 8 (6-20) 10 (6-20) Glucose Level 117 mg/dL (70-99) 115 mg/dL (70-99) Calcium Level 9.4 mg/dL (8.5-10.1) 8.5 mg/dL (8.5-10.1) Total Bilirubin 0.6 mg/dL (0.2-1.0) 0.5 mg/dL (0.2-1.0) Aspartate Amino Transf (AST/SGOT) 44 U/L (15-37) 43 U/L (15-37) Alanine Aminotransferase (ALT/SGPT) 46 U/L (14-59) 47 U/L (14-59) Alkaline Phosphatase 103 U/L (46-116) 100 U/L (46-116) Total Protein 7.6 g/dL (6.4-8.2) 6.2 g/dL (6.4-8.2) Albumin 3.4 g/dL (3.4-5.0) 3.1 g/dL (3.4-5.0) Albumin/Globulin Ratio 0.8 (1.0-1.7) 1.0 (1.0-1.7) Phosphorus Level 4.3 mg/dL (2.6-4.7) Magnesium Level 1.8 mg/dL (1.8-2.4) Triglycerides Level 142 mg/dL (0-150) Problem List SBFT without obstruction trial clears Justicifation of Admission Dx: Justifications for Admission: Justification of Admission Dx: Yes SISI MAYER HOST/HOSTESS HEAD Apr 09, 2021 10:28
--- NOTE | 2021-04-09 10:59 | NUR ---
SW following. Discussed with RN, pt from home, ion franklin NPO - trial clears, TPN. Pt on bowel rest. RN advised no SW needs. SW will continue to follow.
[2021-04-09 11:00] VITALS: BP 105/68
[2021-04-09] MEDS: TPN PER PHARMACY MC PRN (11:36)
--- NOTE | 2021-04-09 11:36 | NUR ---
Pharmacy TPN Dosing Note S: EVELIA ALVAREZ is a 36 year old F Currently receiving Central Continuous TPN started 04/03/21 B:Pertinent PMH: S/P ex lap; awaiting bowel function return Height: 5 feet, 11 inches Weight: 114.353395 kg Current diet: Clears LABS: Sodium: 143 Potassium: 4.3 Chloride: 108 Calcium: 8.5 Corrected Calcium: 9.22 Magnesium: 1.8 CO2: 24 SCr: 0.8 Glucose: 115 Albumin: 3.1 AST: 43 ALT: 47 TPN FORMULA: TPN TYPE: Central Continuous AMINO ACIDS: 60 gm DEXTROSE: 195 gm LIPIDS: 20 gm SODIUM CHLORIDE: 90 mEq POTASSIUM CHLORIDE: 70 mEq POTASSIUM PHOSPHATE: 13.6 mmol MAGNESIUM: 10 mEq CALCIUM: 10 mEq MULTIPLE VITAMIN: 5 ml TRACE ELEMENTS: 1 ml(s) TPN PLAN: continue same TPN -BMP, Mag and Phos in AM R: Continue same TPN formula. Will monitor electrolytes, glucose, and tolerance to TPN. BREE GRAVES [facility], 04/09/21 1138
[2021-04-09 15:00] VITALS: BP 116/70
[2021-04-09] MEDS: ONDANSETRON PF 4 MG/2 ML VIAL. IVP PRN (17:56)
[2021-04-09 19:30] VITALS: BP 105/65
[2021-04-09] MEDS ORDERED: [UNRECOGNIZED DRUG - OTHER] IV SCH (22:00)
[2021-04-09] MEDS ORDERED: TOTAL PARENTERAL NUTRITION IV SCH (22:00)
[2021-04-09] MEDS ORDERED: DEXTROSE 70% IV SCH (22:00)
[2021-04-09] MEDS ORDERED: AMINO ACID IV SCH (22:00)
[2021-04-09] MEDS: PROCHLORPERAZINE 10 MG/2 ML VIAL. IV PRN (22:16)
[2021-04-09] MEDS: diphenhydrAMINE 50 MG/ML VIAL IVP PRN (22:17)
[2021-04-09 23:30] VITALS: BP 106/63
[2021-04-10 03:20] VITALS: BP 100/62
[2021-04-10] MEDS: IV NORMAL SALINE 1000ML BAG 1,000 ML IV SCH (05:46)
[2021-04-10] MEDS: PANTOPRAZOLE 40 MG TABLET.DR. PO SCH (05:46)
[2021-04-10] MEDS: MORPHINE SULFATE 2 MG/ML VIAL. IVP PRN (05:51)
[2021-04-10] MEDS: ONDANSETRON PF 4 MG/2 ML VIAL. IVP PRN (05:54)
[2021-04-10 07:00] VITALS: BP 108/61
[2021-04-10] MEDS: SENNOSIDES/DOCUSATE 8.6/50MG TABLET. PO SCH (08:38)
[2021-04-10] MEDS: HYDROcodone/APAP 5/325MG 1 TAB TABLET PO PRN ×2 (08:39→13:41)
[2021-04-10] MEDS: ENOXAPARIN 40 MG/0.4 ML SYRINGE. SQ SCH (08:41)
--- NOTE | 2021-04-10 10:08 | NUR ---
Patient stated she was told she would discharge today and wants to speak with doctor. Dr. markham.
[2021-04-10 11:00] VITALS: BP 108/78
[2021-04-10] MEDS: PROCHLORPERAZINE 10 MG/2 ML VIAL. IV PRN (12:12)
--- NOTE | 2021-04-10 12:45 | PDOC ---
PROGRESS NOTES Date of Service DATE: 04/10/21 TIME: 12:41 Subjective Subjective feels well, ready to go home Objective Objective Vital Signs Date Time Temp Pulse Resp B/P (MAP) Pulse Ox O2 Delivery O2 Flow Rate FiO2 04/10/21 11:00 97.4 74 18 108/78 (88) 98 Room Air 97.4 04/07/21 19:59 8.0 Intake and Output 04/10/21 07:00 Intake Total 1740 ml Balance 1740 ml Intake Oral 740 ml IV Total 1000 ml # Voids 2 Physical Exam Physical Exam abdomen soft Assessment Assessment S/P Ladds procedure Plan Plan of Care discharge Comment Review of Relevant I have reviewed the following items stefanie (where applicable) has been applied. Labs Microbiology 04/01/21 Blood Culture - Final, Complete NO GROWTH AFTER 5 DAYS Medications Current Medications Fentanyl Citrate (Fentanyl 2ml Vial) 25 mcg PRN Q5MIN PRN IVP MILD PAIN 1-3; Start 03/30/21 at 06:00; Stop 03/31/21 at 05:59; Status DC Fentanyl Citrate (Fentanyl 2ml Vial) 50 mcg PRN Q5MIN PRN IVP MODERATE PAIN 4-6 Last administered on 03/30/21at 14:08; Start 03/30/21 at 06:00; Stop 03/31/21 at 05:59; Status DC Morphine Sulfate (Morphine Sulfate) 1 mg PRN Q10MIN PRN IVP SEVERE PAIN 7-10; Start 03/30/21 at 06:00; Stop 03/31/21 at 05:59; Status DC Ringer's Solution 1,000 ml @ 30 mls/hr Q24H IV Last administered on 03/30/21at 09:16; Start 03/30/21 at 06:00; Stop 03/30/21 at 17:59; Status DC Hydromorphone HCl (Dilaudid) 0.5 mg PRN Q10MIN PRN IVP SEVERE PAIN 7-10, 2nd CHOICE Last administered on 03/30/21at 14:42; Start 03/30/21 at 06:00; Stop 03/31/21 at 05:59; Status DC Prochlorperazine Edisylate (Compazine) 5 mg PACU PRN PRN IVP NAUSEA, MRX1; Start 03/30/21 at 06:00; Stop 03/31/21 at 05:59; Status DC Levofloxacin/ Dextrose 150 ml @ 100 mls/hr 1X PREOP PRN IV PRIOR TO PROCEDURE Last administered on 03/30/21at 10:30; Start 03/30/21 at 09:20; Stop 03/31/21 at 09:19; Status DC Propofol (Diprivan) 200 mg STK-MED ONCE IV ; Start 03/30/21 at 09:51; Stop 03/30/21 at 09:51; Status DC Lidocaine HCl (Lidocaine Pf 2% Vial) 5 ml STK-MED ONCE .ROUTE ; Start 03/30/21 at 09:51; Stop 03/30/21 at 09:51; Status DC Succinylcholine Chloride (Anectine) 200 mg STK-MED ONCE .ROUTE ; Start 03/30/21 at 09:51; Stop 03/30/21 at 09:51; Status DC Rocuronium [place] (Zemuron) 50 mg STK-MED ONCE .ROUTE ; Start 03/30/21 at 09:52; Stop 03/30/21 at 09:53; Status DC Bupivacaine HCl/ Epinephrine Bitart (Sensorcain-Epi 0.5%-1:[id number] Mpf) 30 ml STK-MED ONCE .ROUTE ; Start 03/30/21 at 10:05; Stop 03/30/21 at 10:05; Status DC Iohexol (Omnipaque 300 Mg/ml) 50 ml STK-MED ONCE .ROUTE Last administered on 03/30/21at 12:28; Start 03/30/21 at 10:05; Stop 03/30/21 at 10:05; Status DC Fentanyl Citrate (Fentanyl 2ml Vial) 100 mcg STK-MED ONCE .ROUTE ; Start 03/30/21 at 10:30; Stop 03/30/21 at 10:30; Status DC Dexamethasone Sodium Phosphate (Decadron) 4 mg STK-MED ONCE .ROUTE ; Start 03/30/21 at 10:34; Stop 03/30/21 at 10:34; Status DC Dexamethasone Sodium Phosphate (Decadron) 4 mg STK-MED ONCE .ROUTE ; Start 03/30/21 at 10:34; Stop 03/30/21 at 10:34; Status DC Ondansetron HCl (Zofran) 4 mg STK-MED ONCE .ROUTE ; Start 03/30/21 at 10:34; Stop 03/30/21 at 10:34; Status DC Ketorolac Tromethamine (Toradol 30mg Vial) 30 mg STK-MED ONCE .ROUTE ; Start 03/30/21 at 10:34; Stop 03/30/21 at 10:34; Status DC Hydromorphone HCl (Dilaudid) 2 mg STK-MED ONCE .ROUTE ; Start 03/30/21 at 10:43; Stop 03/30/21 at 10:43; Status DC Ephedrine Sulfate (ePHEDrine PF IN SALINE SYRINGE) 50 mg STK-MED ONCE IV ; Start 03/30/21 at 10:52; Stop 03/30/21 at 10:53; Status DC Rocuronium [place] (Zemuron) 50 mg STK-MED ONCE .ROUTE ; Start 03/30/21 at 11:13; Stop 03/30/21 at 11:13; Status DC Neostigmine [place] (Neostigmine Methylsulfate) 5 mg STK-MED ONCE .ROUTE ; Start 03/30/21 at 12:09; Stop 03/30/21 at 12:09; Status DC Glycopyrrolate (Robinul) 1 mg STK-MED ONCE .ROUTE ; Start 03/30/21 at 12:09; Stop 03/30/21 at 12:09; Status DC Enoxaparin Sodium (Lovenox 40mg Syringe) 40 mg Q24H SQ Last administered on 04/10/21at 08:41; Start 03/31/21 at 09:00 Sodium Chloride (Normal Saline Flush) 3 ml QSHIFT PRN IV AFTER MEDS AND BLOOD DRAWS; Start 03/30/21 at 13:30 Ringer's Solution 1,000 ml @ 100 mls/hr Q10H IV Last administered on 03/30/21at 17:10; Start 03/30/21 at 13:30; Stop 04/01/21 at 05:41; Status DC Acetaminophen/ Hydrocodone Bitart (Lortab 5/325) 1 tab PRN Q4HRS PRN PO MODERATE-SEVERE PAIN Last administered on 04/10/21at 08:39; Start 03/30/21 at 13:30 Naloxone HCl (Narcan) 0.4 mg PRN Q2MIN PRN IV SEE INSTRUCTIONS; Start 03/30/21 at 13:30; Stop 03/31/21 at 09:16; Status DC Sodium Chloride 1,000 ml @ 25 mls/hr Q24H IV ; Start 03/30/21 at 13:30; Stop 03/30/21 at 19:11; Status DC Morphine Sulfate (Morphine Sulfate) 1 mg PRN Q1HR PRN IV PAIN Last administered on 03/30/21at 22:10; Start 03/30/21 at 13:30; Stop 03/31/21 at 07:00; Status DC Senna/Docusate Sodium (Senna Plus) 1 tab BID PO Last administered on 04/10/21at 08:38; Start 03/30/21 at 21:00 Ondansetron HCl (Zofran) 4 mg PRN Q6HRS PRN IVP NAUESA, 1ST CHOICE Last administered on 04/10/21at 05:54; Start 03/30/21 at 13:30 Propofol (Diprivan) 200 mg STK-MED ONCE IV ; Start 03/30/21 at 13:34; Stop 03/30/21 at 13:35; Status DC Fentanyl Citrate (Fentanyl 2ml Vial) 100 mcg STK-MED ONCE .ROUTE ; Start 03/30/21 at 13:40; Stop 03/30/21 at 13:41; Status DC Naloxone HCl (Narcan) 0.4 mg PRN Q2MIN PRN IV SEE INSTRUCTIONS; Start 03/31/21 at 00:45 Sodium Chloride 1,000 ml @ 100 mls/hr Q10H IV Last administered on 04/10/21at 05:46; Start 03/31/21 at 00:45 Hydromorphone HCl 30 ml @ 0 mls/hr CONT PRN PRN IV PER PROTOCOL Last administered on 04/05/21at 22:00; Start 03/31/21 at 00:45; Stop 04/07/21 at 13:35; Status DC Prochlorperazine Edisylate (Compazine) 5 mg PRN Q6HRS PRN IV NAUSEA/VOMITING, 2ND CHOICE Last administered on 04/10/21at 12:12; Start 03/31/21 at 21:30 Pantoprazole Sodium (Protonix) 40 mg DAILYAC PO Last administered on 04/10/21at 05:46; Start 04/01/21 at 07:30 Ringer's Solution 500 ml @ 500 mls/hr 1X ONCE IV Last administered on 04/01/21at 13:54; Start 04/01/21 at 13:45; Stop 04/01/21 at 14:44; Status DC Ringer's Solution 500 ml @ 500 mls/hr 1X ONCE IV Last administered on 04/02/21at 08:00; Start 04/02/21 at 08:00; Stop 04/02/21 at 08:59; Status DC Lidocaine HCl (Buffered Lidocaine 1%) 3 ml STK-MED ONCE .ROUTE ; Start 04/02/21 at 14:45; Stop 04/02/21 at 14:45; Status DC Phenol (Chloraseptic) 1 spray PRN Q2HR PRN PO SORE THROAT Last administered on 04/03/21at 03:22; Start 04/03/21 at 03:15 Info (Tpn Per Pharmacy) 1 each PRN DAILY PRN MC SEE COMMENTS Last administered on 04/09/21at 11:36; Start 04/03/21 at 08:45 Amino Acids/ Glycerin/ Electrolytes 1,000 ml @ 80 mls/hr [id number] IV Last administered on 04/03/21at 10:29; Start 04/03/21 at 08:45; Stop 04/03/21 at 2 1:59; Status DC Fat Emulsion Intravenous 250 ml @ 21 mls/hr Q24H IV ; Start 04/03/21 at 22:00; Status UNV Potassium Phosphate 13.6 mmol/Sodium Chloride 254.5333 ml @ 127.... 1X ONCE IV Last administered on 04/03/21at 12:00; Start 04/03/21 at 12:00; Stop 04/03/21 at 13:59; Status DC Sodium Chloride 90 meq/Potassium Chloride 50 meq/ Potassium Phosphate 13.6 mmol/Magnesium Sulfate 10 meq/ Calcium Gluconate 10 meq/ Multivitamins 5 ml/Zinc/Copper/ Manganese/ Selenium 1 ml/ Total Parenteral Nutrition/Amino Acids/Dextrose/ Fat Emulsion Intravenous 1,512 ml @ 63 mls/hr TPN CONT IV Last administered on 04/03/21at 22:47; Start 04/03/21 at 22:00; Stop 04/04/21 at 21:59; Status DC Sodium Chloride 90 meq/Potassium Chloride 50 meq/ Potassium Phosphate 13.6 mmol/Magnesium Sulfate 10 meq/ Calcium Gluconate 10 meq/ Multivitamins 5 ml/Zinc/Copper/ Manganese/ Selenium 1 ml/ Total Parenteral Nutrition/Amino Acids/Dextrose/ Fat Emulsion Intravenous 1,512 ml @ 63 mls/hr TPN CONT IV Last administered on 04/04/21at 22:53; Start 04/04/21 at 22:00; Stop 04/05/21 at 21:59; Status DC Acetaminophen (Tylenol) 650 mg PRN Q6HRS PRN PO MILD PAIN / TEMP > 100.3'F Last administered on 04/05/21at 11:59; Start 04/05/21 at 12:00 Sodium Chloride 90 meq/Potassium Chloride 70 meq/ Potassium Phosphate 13.6 mmol/Magnesium Sulfate 10 meq/ Calcium Gluconate 10 meq/ Multivitamins 5 ml/Zinc/Copper/ Manganese/ Selenium 1 ml/ Total Parenteral Nutrition/Amino Acids/Dextrose/ Fat Emulsion Intravenous 1,512 ml @ 63 mls/hr TPN CONT IV Last administered on 04/05/21at 21:09; Start 04/05/21 at 22:00; Stop 04/06/21 at 21:59; Status DC Acetaminophen/ Aspirin/Caffeine (Excedrin Migraine) 1 tab PRN Q6HRS PRN PO MIGRAINE HEADACHE Last administered on 04/05/21at 15:52; Start 04/05/21 at 15:00 Sodium Chloride 90 meq/Potassium Chloride 70 meq/ Potassium Phosphate 13.6 mmol/Magnesium Sulfate 10 meq/ Calcium Gluconate 10 meq/ Multivitamins 5 ml/Zinc/Copper/ Manganese/ Selenium 1 ml/ Total Parenteral Nutrition/Amino Acids/Dextrose/ Fat Emulsion Intravenous 1,512 ml @ 63 mls/hr TPN CONT IV Last administered on 04/06/21at 21:19; Start 04/06/21 at 22:00; Stop 04/07/21 at 21:59; Status DC Sodium Chloride 90 meq/Potassium Chloride 70 meq/ Potassium Phosphate 13.6 mmol/Magnesium Sulfate 10 meq/ Calcium Gluconate 10 meq/ Multivitamins 5 ml/Zinc/Copper/ Manganese/ Selenium 1 ml/ Total Parenteral Nutrition/Amino Acids/Dextrose/ Fat Emulsion Intravenous 1,512 ml @ 63 mls/hr TPN CONT IV Last administered on 04/07/21at 21:13; Start 04/07/21 at 22:00; Stop 04/08/21 at 21:59; Status DC Morphine Sulfate (Morphine Sulfate) 1 mg 1X ONCE IVP ; Start 04/07/21 at 17:15; Stop 04/07/21 at 17:16; Status Cancel Morphine Sulfate (Morphine Sulfate) 1 mg PRN Q1HR PRN IVP PAIN Last administered on 04/10/21at 05:51; Start 04/07/21 at 17:15 Diphenhydramine HCl (Benadryl) 12.5 mg 1X ONCE IVP Last administered on 04/07/21at 22:18; Start 04/07/21 at 22:00; Stop 04/07/21 at 22:01; Status DC Iohexol (Omnipaque 300 Mg/ml) 400 ml 1X ONCE PO Last administered on 04/08/21at 09:30; Start 04/08/21 at 09:30; Stop 04/08/21 at 09:31; Status DC Info (CONTRAST GIVEN -- Rx MONITORING) 1 each PRN DAILY PRN MC SEE COMMENTS; Start 04/08/21 at 09:30; Stop 04/10/21 at 09:29; Status DC Sodium Chloride 90 meq/Potassium Chloride 70 meq/ Potassium Phosphate 13.6 mmol/Magnesium Sulfate 10 meq/ Calcium Gluconate 10 meq/ Multivitamins 5 ml/Zinc/Copper/ Manganese/ Selenium 1 ml/ Total Parenteral Nutrition/Amino Acids/Dextrose/ Fat Emulsion Intravenous 1,512 ml @ 63 mls/hr TPN CONT IV Last administered on 04/08/21at 21:51; Start 04/08/21 at 22:00; Stop 04/09/21 at 21:59; Status DC Diphenhydramine HCl (Benadryl) 12.5 mg PRN QHS PRN IVP INSOMNIA Last administered on 04/09/21at 22:17; Start 04/08/21 at 21:00 Sodium Chloride 90 meq/Potassium Chloride 70 meq/ Potassium Phosphate 13.6 mmol/Magnesium Sulfate 10 meq/ Calcium Gluconate 10 meq/ Multivitamins 5 ml/Zinc/Copper/ Manganese/ Selenium 1 ml/ Total Parenteral Nutrition/Amino Acids/Dextrose/ Fat Emulsion Intravenous 1,512 ml @ 63 mls/hr TPN CONT IV Last administered on 04/09/21at 22:16; Start 04/09/21 at 22:00; Stop 04/10/21 at 21:59 Active Scripts Active Reported Multivitamins (Multivitamin) 1 Each Tablet 1 Tab PO DAILY Pirmella (Norethindrone-Ethinyl Estrad) 1 Each Tablet 1 Tab PO DAILY 28 Days Nexium Capsule (Esomeprazole Magnesium) 40 Mg Capsule. 1 Cap PO DAILY Vitals/I & O Vital Sign - Last 24 Hours 04/09/21 04/09/21 04/09/21 04/09/21 13:07 13:39 15:00 15:37 Temp 98.2 98.2 Pulse 68 Resp 18 B/P (MAP) 116/70 (85) Pulse Ox 100 O2 Delivery Room Air Room Air Room Air Room Air 04/09/21 04/09/21 04/09/21 04/09/21 16:26 17:45 18:14 19:30 Temp 98.6 98.6 Pulse 81 Resp 18 B/P (MAP) 105/65 (78) Pulse Ox 97 O2 Delivery Room Air Room Air Room Air Room Air 04/09/21 04/09/21 04/09/21 04/09/21 19:37 20:38 21:11 23:30 Temp 98.4 98.4 Pulse 77 Resp 16 16 18 B/P (MAP) 106/63 (77) Pulse Ox 98 O2 Delivery Room Air Room Air Room Air Room Air 04/09/21 04/10/21 04/10/21 04/10/21 23:31 00:11 03:20 05:51 Temp 98.4 98.4 Pulse 66 Resp 16 16 18 16 B/P (MAP) 100/62 (75) Pulse Ox 98 O2 Delivery Room Air Room Air Room Air Room Air 04/10/21 04/10/21 04/10/21 04/10/21 06:25 07:00 08:00 08:39 Temp 98.1 98.1 Pulse 77 Resp 16 16 B/P (MAP) 108/61 (77) Pulse Ox 98 O2 Delivery Room Air Room Air Room Air Room Air 04/10/21 04/10/21 09:09 11:00 Temp 97.4 97.4 Pulse 74 Resp 18 B/P (MAP) 108/78 (88) Pulse Ox 98 O2 Delivery Room Air Room Air Intake and Output 04/09/21 04/09/21 04/10/21 15:00 23:00 07:00 Intake Total 260 ml 1480 ml Balance 260 ml 1480 ml Justifications for Admission Other Justification CHRISTIANO BURROWS MD Apr 10, 2021 12:45
--- NOTE | 2021-04-10 12:49 | DISCH ---
DISCHARGE INSTRUCTIONS Condition on Discharge Condition on Discharge: Stable Activity After Discharge Activity Instructions for Disc: Other, see below (no lifting over 20 lbs) Diet after Discharge Diet after Discharge: Regular Follow-Up Follow up with: Dr Godfrey in 1-2 weeks in office, call for appointmetn [phone] CHRISTIANO BURROWS MD Apr 10, 2021 12:49
--- NOTE | 2021-04-10 15:26 | NUR ---
Patient discharged home with self care. patient verbalized understanding of discharge instructions.
== END 2021-04-10 14:55 | disposition home or self-care (01) | DRG 415 ==
LOC: OPSVCIP 08:08 → EDSTATUS 09:45 → EDUNIT# 09:45 → 4 NORTH 15:14
PROVIDERS: ADMIT Surgery; ATTEND Surgery
PROC: 0DNN0ZZ Release Sigmoid Colon, Open Approach (ICD-10-PCS; 2021-03-30)
PROC: 0DTJ0ZZ Resection of Appendix, Open Approach (ICD-10-PCS; 2021-03-30)
PROC: 0FT40ZZ Resection of Gallbladder, Open Approach (ICD-10-PCS; 2021-03-30 09:45)
PROC: 02HV33Z Insertion of Infusion Device into Superior Vena Cava, Percutaneous Approach (ICD-10-PCS; principal; 2021-04-02)
PROC: B5181ZA Fluoroscopy of Superior Vena Cava using Low Osmolar Contrast, Guidance (ICD-10-PCS; 2021-04-02)
PROC: B548ZZA Ultrasonography of Superior Vena Cava, Guidance (ICD-10-PCS; 2021-04-02)
PROC: BF101ZZ Fluoroscopy of Bile Ducts using Low Osmolar Contrast (ICD-10-PCS; 2021-04-02)
DX: K85.90 Acute pancreatitis without necrosis or infection, unspecified (principal); Q43.3 Congenital malformations of intestinal fixation; E46 Unspecified protein-calorie malnutrition; F41.9 Anxiety disorder, unspecified; R59.9 Enlarged lymph nodes, unspecified; Z88.8 Allergy status to other drugs, medicaments and biological substances; Z79.899 Other long term (current) drug therapy; Z68.35 Body mass index [BMI] 35.0-35.9, adult
CPT/HCPCS: 36415; 36573; 74018; 74021; 74022; 74250; 74300; 77001; 80048; 80053; 81025; 83605; 83735; 84100; 84478; 85007; 85025; 87040; 88302; 88304; A4314; A4930; A6220; C1751; C1887; C1892; J0330; J0610; J0780; J1100; J1170; J1200; J1650; J1885; J1956; J2270; J2405; J2704; J2710; J3010; J3475; J3480; J3490; J7030; J7050; J7120; Q9967; G0378